=== PATIENT | male | born 1975 | race African-American/Black ===

== ENCOUNTER 2017-07-06 08:23 | Emergency (ER) | payer MEDICARE, MEDICAID | END 2017-07-06 09:00 | disposition home or self-care (01) | LOC: ERS 08:23 | DX: L03.115 Cellulitis of right lower limb (principal); E11.9 Type 2 diabetes mellitus without complications; I10 Essential (primary) hypertension | CPT/HCPCS: 99283 ==

== ENCOUNTER 2018-04-21 11:42 | Outpatient (CLI) | payer MEDICARE, MEDICAID | END 2018-04-21 11:43 | disposition home or self-care (01) | LOC: BICRAD 11:42 | PROVIDERS: ATTEND Family Medicine | DX: M25.562 Pain in left knee (principal); M54.5 Low back pain; R93.7 Abnormal findings on diagnostic imaging of other parts of musculoskeletal system; M46.96 Unspecified inflammatory spondylopathy, lumbar region; Z98.890 Other specified postprocedural states | CPT/HCPCS: 72100 ==

== ENCOUNTER 2019-09-18 11:59 | Inpatient (IN) | payer MEDICARE, MEDICAID ==
--- NOTE | 2019-09-18 12:53 | RAD ---
EXAM: Chest 2 views: HISTORY: Cough and congestion; shortness of breath COMPARISON: 10/19/2005 FINDINGS: There is a normal-sized cardiomediastinal silhouette. Scattered mixed perihilar opacities are seen. The bones are unremarkable. IMPRESSION: Mixed bilateral perihilar infiltrates.
[2019-09-18 13:48] LABS: #Eosinphils 0.2 thou/uL (0.0-0.7); #Monocytes 0.4 thou/uL (0.11-0.59); #Neutrophils 3.2 thou/uL (1.40-6.50); %Basophils 0.5 % (0.0-1.0); %Eosinophils 2.8 % (0.0-10.0); %Lymphocytes 34.7 % (21.0-51.0); %Monocytes 6.8 % (0.0-10.0); %Neutrophils 55.2 % (42.0-75.0); Hemoglobin 16.6 g/dL (14.0-18.0); Mean Corpuscular HGB CONC 32.5 g/dL (32.0-36.0); Mean Corpuscular Hemoglobin 31.2 pg (27.0-31.0); Mean Corpuscular Volume 95.8 fL (78.0-98.0); Mean Platelet Volume 8.6 fL (7.4-10.4); Platelet Count 178 thou/uL (130-400); RBC Distribution Width 15.1 % (11.5-14.5); Red Blood Cell (RBC) Count 5.31 mill/uL (4.70-6.10); White Blood Cell (WBC) Count 5.8 thou/uL (4.8-10.8)
[2019-09-18 14:14] LABS: ALT (SGPT) 52 U/L (8-55); AST (SGOT) 34 U/L (5-34); Albumin 4.1 g/dL (3.5-5.0); Alkaline Phosphatase 88 U/L (40-110); Anion Gap 14 mmol/L (10-20); BUN (Urea Nitrogen) 13 mg/dL (8.9-20.6); Bilirubin, Total 0.8 mg/dL (0.2-1.2); Calc. Creatinine Clearance 0 mL/min (70-130); Calcium 8.6 mg/dL (7.8-10.44); Carbon Dioxide 21 mmol/L (22-29); Chloride 110 mmol/L (98-107); Estimated GFR-MDRD 89; Globulin 3.1 g/dL (2.4-3.5); Glucose 77 mg/dL (70-105); Potassium 4.3 mmol/L (3.5-5.1); Protein, Total 7.2 g/dL (6.0-8.3); Sodium 141 mmol/L (136-145)
[2019-09-18] MEDS ORDERED: cefTRIAXone\\ROCEPHIN 2 GM VIAL ONE (14:25)
[2019-09-18] MEDS ORDERED: Sodium Chloride 0.9% 100 ML ONE (14:25)
[2019-09-18] MEDS ORDERED: Albuterol Sulfate 2.5 mg/3 ml Neb ONE (14:53)
[2019-09-18] MEDS ORDERED: Albuterol Sulfate 2.5 mg/0.5 ml Neb ONE (14:53)
[2019-09-18] MEDS ORDERED: Azithromycin 500 MG in Sodium Chloride 0.9% 250 ML 250 ML IVPB SCH (15:30)
[2019-09-18] MEDS ORDERED: Ondansetron PF 4 MG/2 ML Vial IVP PRN (17:39)
[2019-09-18] MEDS ORDERED: Senokot S 8.6-50 MG TAB PO PRN (17:39)
[2019-09-18] MEDS ORDERED: Dextrose 50% Abboject 50 ML SYRINGE SLOW IVP PRN (17:39)
[2019-09-18] MEDS ORDERED: HumaLOG 300 UNITS/3 ML VIAL SC PRN (17:39)
[2019-09-18] MEDS ORDERED: Acetaminophen 325 MG TAB PO PRN (17:39)
[2019-09-18] MEDS ORDERED: Dextrose 5% in Water 1,000 ML IV PRN (17:39)
--- NOTE | 2019-09-18 18:33 | CT ---
CT CHEST WITHOUT CONTRAST CLINICAL INDICATION: Shortness of breath for a couple of days. Cough. Chest congestion. Evaluate for infiltrate. COMPARISON: None FINDINGS: Aorta: Limited evaluation without IV contrast. However, the thoracic aorta is normal in caliber. Lungs: There are small to moderate-sized bilateral pleural effusions with associated parenchymal dens ities likely due to atelectasis; although, infiltrates cannot be excluded. There are patchy groundglass densities seen within the upper lobes bilaterally which is worrisome for infectious proce ss. Follow-up to resolution is recommended. Mediastinum: Limited evaluation without IV contrast, but no definite enlarged lymph nodes are appreci ated. Thyroid gland: Grossly normal in appearance where visualized for nonenhanced CT appearance. Osseous structures: Mild degenerative changes are seen in the spine. Chest wall: No abnormality visualized. Visualized upper abdomen: Grossly normal nonenhanced CT appearance. IMPRESSION: 1. Patchy groundglass opacities in the upper lobes bilaterally worrisome for infectious process. Foll ow-up to resolution is recommended. 2. Moderate-sized bilateral pleural effusions with associated consolidation which may be related to a telectasis. Areas of consolidation could potentially be related to pneumonia. 3. Follow-up to complete resolution is recommended.
[2019-09-18 18:40] LABS: HBCM Index 0.06 S/CO (0-0.79); HIV (1/2) Antibody/Antigen Non-Reactive (NonReactive); HIV 1/2 INDEX 0.15 S/CO (<1.00); Hep A IgM AB Non-Reactive (NonReactive); Hep A IgM S/CO 0.13 S/CO (0-0.79); Hep B Surf Ag Non-Reactive S/CO (NonReactive); Hep C IgG Ab Non-Reactive (NonReactive); Hep C Index 0.29 S/CO (0-0.79); Hepatitis B Core IgM Abs Non-Reactive (NonReactive)
--- NOTE | 2019-09-18 19:32 | HP ---
REASON FOR ADMISSION: Pneumonia, acute respiratory failure with hypoxia. HISTORY OF PRESENT ILLNESS: The patient gives history of cough with clear expectoration from last 3 to 4 days. He got severely short winded this afternoon and came to ER. No fever at home. No exposure to any recent contacts with flu- like illness. No complaints of muscular pain or weakness as such. He does not smoke. He has not had any recent pneumonia. PAST MEDICAL AND SURGICAL HISTORY: Diabetes mellitus type 2, hypertension. No prior surgical history. CURRENT MEDICATIONS: The patient notes he takes Levemir subcu twice daily. He also takes nine other pills, which he does not recall. He goes to [facility] pharmacy on [facility] [address] and will try to obtain the same. He normally ambulates by himself. ALLERGIES: NO KNOWN DRUG ALLERGIES. PERSONAL HISTORY: Drinks one beer daily per patient. Does not abuse drugs or smoke. He states he is disabled. He lives alone. FAMILY HISTORY: Mother is living and has diabetes. Father got killed when he was 3 years old. CODE STATUS: Full. Power of bankruptcy attorney is his mom, Ms. Bhupinder Triana, number to reach her is [phone]. REVIEW OF SYSTEMS: CONSTITUTIONAL: Negative for weight loss or gain, ability to conduct usual activities. SKIN: Negative for rash, itching. EYES: Negative for double vision, pain. ENT/MOUTH: Negative for nose bleeding, neck stiffness, pain, tenderness. CARDIOVASCULAR: Negative for palpitations, dyspnea on exertion, orthopnea. RESPIRATORY: Negative for shortness of breath, wheezing, cough, hemoptysis, fever or night sweats. GASTROINTESTINAL: Negative for poor appetite, abdominal pain, heartburn, nausea , vomiting, constipation, or diarrhea. GENITOURINARY: Negative for urgency, frequency, dysuria, nocturia. MUSCULOSKELETAL: Negative for pain, swelling. NEUROLOGIC/PSYCHIATRIC: Negative for anxiety, depression. ALLERGY/IMMUNOLOGIC: Negative for skin rash, bleeding tendency. Otherwise, negative except as stated per HPI. PHYSICAL EXAMINATION: GENERAL: The patient is a 43-year-old male, who is currently in mild respiratory distress. VITAL SIGNS: Blood pressure 210/108 on arrival, it has come down to 176/80, pulse 64 per minute, respiratory rate 22 per minute, temperature 97.9 degrees Fahrenheit, saturating 88% on room air and 95% on 4 L oxygen. NECK: Supple. No elevated JVD. HEENT: Eyes; extraocular muscles intact. Pupils reacting to light. Oral cavity, mucous membranes are dry. No exudates or congestion. CARDIOVASCULAR: S1 and S2 heard. Regular rhythm. RESPIRATORY: Air entry 1+ bilateral, coarse rales plus bilateral rhonchi plus bilateral. ABDOMEN: Soft. Bowel sounds heard. No tenderness, rigidity, or guarding. Abdomen is protuberant, which is chronic. EXTREMITIES: There is 2+ peripheral edema. No calf tenderness. VASCULAR: Peripheral pulses 1+ bilateral. No ischemic ulcerations or gangrene. CENTRAL NERVOUS SYSTEM: No gross focal deficits noted. The patient is alert, awake, and oriented well. PSYCHIATRIC: The patient's mood is euthymic. No hallucinations or delusions. LABORATORY DATA: Influenza A and B antigens are negative. CT chest without contrast done showed patchy ground-glass opacities in both upper lobes, worrisome for infectious process, moderate-sized bilateral pleural effusions. Serum bicarb 21, BUN 13, creatinine 1.0, serum glucose 77. Liver enzymes, AST 34, ALT 52, alkaline phosphatase 88, total bilirubin 0.8, BNP 244. Albumin 4.1, BUN 13, creatinine 1.0. White count of 5.8, H and H 16 and 50, platelet count 178 with 55% neutrophils, 34% lymphocytes. MCV is 95. CLINICAL IMPRESSION AND PLAN: The patient will be admitted to medical floor for pneumonia, acute respiratory failure with hypoxia. Clinically, the patient appears to have volume overload. He also has hypertensive urgency at present. In view of immunodeficiency with diabetes, we will place him on cefepime and Levaquin for now. We will obtain HIV test as well along with respiratory virus panel PCR. Urine for Legionella and strep pneumo antigens will be obtained as well. We will obtain consultation with Dr. Ernandez. We will try to keep him as lean as possible with some Lasix as well as patient has potential to go into acute respiratory distress syndrome if he truly has pneumonia. He will be on albuterol nebulizer q.6 hourly. We will obtain ABG stat, echo with 2D Doppler for LV function. The patient might have underlying sleep apnea with obesity as well. We will closely monitor him for worsening respiratory failure. We will place him on Procardia, clonidine, and hydralazine for now. Once his home medications are obtained from [facility] pharmacy on [facility], his medications will be updated based on clinical condition. We will also continue him on Humalog moderate scale. His serum sugar was 72. We will not give him a high dose of Levemir that he takes at home for now. We will continue to closely monitor him on medical floor. If the patient decompensates, he will be moved to ICU or IMCU. Job ID: [id number] MTDD
[2019-09-18] MEDS: Guaifenesin DM 100-10/5 ML UDCUP PO PRN (22:14)
[2019-09-18] MEDS: Famotidine 20 MG TAB PO SCH (22:14)
[2019-09-18] MEDS: cloNIDine 0.1 MG TAB PO SCH (22:15)
[2019-09-18] MEDS: hydrALAZINE 25 MG TAB PO SCH (22:15)
[2019-09-18] MEDS: Albuterol Sulfate 1.25 MG/3 ML NEB NEB SCH ×2 (22:45→23:28)
[2019-09-18 22:51] VITALS: BMI 37.9
[2019-09-18 23:38] LABS: Actual Bicarbonate (HCO3a) 22.3 mEq/L (22-28); Base Excess (BEa) -2.9 mEq/L (-2.0 to +3.0); CO2 Tension 40.5 mmHg (35.0-45.0); Calcium, Ionized 1.17 mmol/L (1.12-1.30); Carboxyhemoglobin (COHb) 1.5 gm% (0.0-3.0); Hemoglobin (Hb) 15.1 g/dL (14.0-18.0); O2 Tension (PaO2) 68.3 mmHg (80.0-100.0); Potassium - ABG Lab 4.02 mmol/L (3.70-5.30); pH, Arterial 7.36 (7.35-7.45)
[2019-09-18 23:39] LABS: ALV-art Gradient 80.715 (0-20); Puncture Site R RADIAL
[2019-09-19] MEDS: Cefepime 1 GM in Sodium Chloride 0.9% 100 ML IVPB SCH ×3 (00:17→20:51)
[2019-09-19] MEDS: Guaifenesin DM 100-10/5 ML UDCUP PO PRN ×2 (02:19→06:15)
[2019-09-19 05:15] LABS: #Eosinphils 0.2 thou/uL (0.0-0.7); #Lymphocytes 1.7 thou/uL (1.20-3.40); #Monocytes 0.6 thou/uL (0.11-0.59); #Neutrophils 3.2 thou/uL (1.40-6.50); %Basophils 0.7 % (0.0-1.0); %Eosinophils 3.6 % (0.0-10.0); %Lymphocytes 29.8 % (21.0-51.0); Hemoglobin 14.9 g/dL (14.0-18.0); Mean Corpuscular HGB CONC 32.4 g/dL (32.0-36.0); Mean Corpuscular Hemoglobin 30.5 pg (27.0-31.0); Mean Platelet Volume 8.8 fL (7.4-10.4); Platelet Count 169 thou/uL (130-400); RBC Distribution Width 15.3 % (11.5-14.5); Red Blood Cell (RBC) Count 4.88 mill/uL (4.70-6.10); White Blood Cell (WBC) Count 5.8 thou/uL (4.8-10.8)
[2019-09-19 05:35] LABS: Anion Gap 10 mmol/L (10-20); BUN (Urea Nitrogen) 13 mg/dL (8.9-20.6); Calc. Creatinine Clearance 123 mL/min (70-130); Calcium 8.3 mg/dL (7.8-10.44); Carbon Dioxide 26 mmol/L (22-29); Chloride 109 mmol/L (98-107); Estimated GFR-MDRD 81; Glucose 107 mg/dL (70-105); Potassium 4.3 mmol/L (3.5-5.1); Sodium 141 mmol/L (136-145)
[2019-09-19] MEDS: Furosemide 40 MG/4 ML VIAL SLOW IVP SCH ×2 (06:15→14:56)
[2019-09-19 07:27] LABS: Legionella Urinary Ag Negative (Negative); Strep pneumo Urine Ag NEGATIVE (NEGATIVE)
[2019-09-19] MEDS: Albuterol Sulfate 1.25 MG/3 ML NEB NEB SCH ×3 (07:36→18:45)
[2019-09-19] MEDS: cloNIDine 0.1 MG TAB PO SCH ×2 (09:08→20:52)
[2019-09-19] MEDS: hydrALAZINE 25 MG TAB PO SCH ×3 (09:08→20:52)
[2019-09-19] MEDS: Enoxaparin Sodium 40 MG/0.4 ML SYRINGE SC SCH (09:08)
[2019-09-19] MEDS: Famotidine 20 MG TAB PO SCH ×2 (09:08→20:52)
[2019-09-19] MEDS: NIFEdipine XL 60 MG TAB PO SCH (09:08)
--- NOTE | 2019-09-19 17:02 | CON ---
DATE OF CONSULTATION: 09/19/2019 CONSULTING PHYSICIAN: Herbie Love MD REASON FOR CONSULTATION: Pneumonia. HISTORY OF PRESENT ILLNESS: This is a 43-year-old who presented to the hospital with 2 days of increasing cough and congestion. He denied any fever. He was found to be hypoxic on presentation. He was admitted for treatment of bilateral pneumonia. PAST MEDICAL HISTORY: 1. Diabetes mellitus, type 2. 2. Hypertension. PAST SURGICAL HISTORY: None. MEDICATIONS: Prior to admission, Levemir insulin. ALLERGIES: NONE. SOCIAL HISTORY: Drinks 1 beer daily. Does not smoke. Does not use illicit drugs. Lives by himself, but has a girlfriend. Does not currently work. FAMILY MEDICAL HISTORY: Remarkable for diabetes. REVIEW OF SYSTEMS: Twelve-point review of systems is otherwise negative. PHYSICAL EXAMINATION: VITAL SIGNS: Temperature 98.4, pulse 59, respirations 16, O2 saturation 95% on 2 L, and blood pressure 166/99. HEENT: Unremarkable. NECK: No adenopathy or JVD. LUNGS: Inspiratory crackles best heard posteriorly and bilaterally. CARDIAC: S1 and S2. Regular. ABDOMEN: Soft and nontender. EXTREMITIES: No clubbing, cyanosis, or edema. NEUROLOGIC: Nonfocal. SKIN: Shows striae over his shoulders and his abdomen. LABORATORY DATA: White blood cell count 5.8, hematocrit 45.9, and platelet count 169. PH of 7.36, pCO2 of 40, and pO2 of 68. Sodium 141, potassium 4.3, chloride 109, CO2 of 26, BUN 13, creatinine 1.2, and glucose 107. HIV test was negative. IMAGING DATA: I reviewed his CT and chest x-ray, both show bilateral infiltrative changes. ASSESSMENT: Bilateral pneumonia, somewhat atypical in appearance. PLAN: Agree with the current medications including Levaquin and cefepime. Hopefully, he will improve in a couple of days and will get to go home. Job ID: [id number]
--- NOTE | 2019-09-19 20:47 | PDOC.HOSPP ---
- Subjective Subjective: No acute issues. Feeling better. - Objective Vital Signs & Weight: Vital Signs (12 hours) Temp Pulse Resp BP Pulse Ox 09/19/19 18:45 80 18 96 09/19/19 15:47 98.1 F 69 18 125/82 93 L 09/19/19 13:15 8 L 20 97 09/19/19 11:40 98.4 F 59 L 16 166/99 H 95 Weight Weight 242 lb I&O: 09/18/19 09/19/19 09/20/19 06:59 06:59 06:59 Intake Total 750 1800 Balance 750 1800 Result Diagrams: 09/19/19 04:57 09/19/19 04:57 Additional Labs: Accuchecks 09/19/19 09/19/19 09/19/19 20:15 16:26 10:44 POC Glucose 143 H 137 H 137 H 09/19/19 05:38 POC Glucose 86 Hospitalist ROS - Review of Systems Constitutional: denies: fever, chills, sweats, weakness, malaise, other Eyes: denies: pain, vision change, conjunctivae inflammation, eyelid inflammation, redness, other ENT: denies: ear pain, ear discharge, nose pain, nose discharge, nose congestion , mouth pain, mouth swelling, throat pain, throat swelling, other Respiratory: reports: cough. denies: dry, shortness of breath, hemoptysis, SOB with excertion, pleuritic pain, sputum, wheezing, other Cardiovascular: denies: chest pain, palpitations, orthopnea, paroxysmal noc. dyspnea, edema, light headedness, other Gastrointestinal: denies: nausea, vomiting, abdominal pain, diarrhea, constipation, melena, hematochezia, other Genitourinary: denies: dysuria, frequency, incontinence, hematuria, retention, other Musculoskeletal: denies: neck pain, shoulder pain, arm pain, back pain, hand pain, leg pain, foot pain, other Skin: denies: rash, lesions, flroencio, bruising, other Neurological: denies: weakness, numbness, incoordination, change in speech, confusion, seizures, other - Medication Medications: Active Medications Generic Name Dose Route Start Last Admin Trade Name Freq PRN Reason Stop Dose Admin Albuterol Sulfate 1.25 mg 09/18/19 19:00 09/19/19 18:45 Albuterol Sulfate NEB 1.25 mg [id number] RACHELLE Administration Clonidine 0.1 mg 09/18/19 21:00 09/19/19 09:08 Catapres PO 0.1 mg BID RACHELLE Administration Enoxaparin Sodium 40 mg 09/19/19 09:00 09/19/19 09:08 Lovenox SC 40 mg 0900 RACHELLE Administration Famotidine 20 mg 09/18/19 21:00 09/19/19 09:08 Pepcid PO 20 mg BID RACHELLE Administration Furosemide 40 mg 09/19/19 06:00 09/19/19 14:56 Lasix SLOW IVP 40 mg 0600,1400 RACHELLE Administration Guaifenesin/Dextromethorphan 15 ml 09/18/19 17:39 09/19/19 06:15 Robitussin Dm PO 15 ml Q4H PRN Administration Cough Hydralazine HCl 25 mg 09/18/19 21:00 09/19/19 14:56 Apresoline PO 25 mg TID RACHELLE Administration Cefepime HCl 1 gm/ Sodium 100 mls @ 200 mls/hr 09/18/19 21:00 09/19/19 09:08 Chloride IVPB 100 mls Q12HR RACHELLE Administration Levofloxacin 500 mg/ Device 100 mls @ 100 mls/hr 09/18/19 20:00 09/18/19 22: 14 IVPB 100 mls Q24HR RACHELLE Administration Nifedipine 60 mg 09/19/19 09:00 09/19/19 09:08 Procardia Xl PO 60 mg DAILY RACHELLE Administration Sodium Chloride 10 ml 09/18/19 21:00 09/19/19 09:11 Flush - Normal Saline IVF 10 ml Q12HR RACHELLE Administration - Exam General Appearance: NAD, awake alert Eye: PERRL, anicteric sclera ENT: normocephalic atraumatic, no oropharyngeal lesions Neck: supple, symmetric, no JVD, no thyromegaly Heart: RRR, no murmur, no gallops, no rubs Respiratory: CTAB, no wheezes, no rales, no ronchi Gastrointestinal: soft, non-tender, non-distended, normal bowel sounds Extremities: no cyanosis, no clubbing, no edema Skin: no lesions, no rashes Neurological: cranial nerve grossly intact, no focal deficits Musculoskeletal: normal strength, no muscle wasting Psychiatric: normal affect, A&O x 3 Hosp A/P (1) PNA (pneumonia) Code(s): J18.9 - PNEUMONIA, UNSPECIFIED ORGANISM Status: Acute (2) HTN (hypertension) Code(s): I10 - ESSENTIAL (PRIMARY) HYPERTENSION Status: Acute Qualifiers: Hypertension type: essential hypertension Qualified Code(s): I10 - Essential (primary) hypertension Plan: Controlled. Cont med mgt. Monitor BP. (3) Diabetes Code(s): E11.9 - TYPE 2 DIABETES MELLITUS WITHOUT COMPLICATIONS Status: Acute Qualifiers: Diabetes mellitus type: type 2 Diabetes mellitus half-way insulin use: unspecified half-way insulin use status Diabetes mellitus complication status : without complication Qualified Code(s): E11.9 - Type 2 diabetes mellitus without complications Plan: Controlled. Cont current BP meds. Cover with SSI. - Plan PPx: SCDs. CODE: FULL. Dispo: Cont current mgt. D/c in 1-2 days.
[2019-09-20] MEDS: Albuterol Sulfate 1.25 MG/3 ML NEB NEB SCH ×4 (01:15→18:37)
[2019-09-20] MEDS: Furosemide 40 MG/4 ML VIAL SLOW IVP SCH ×2 (05:47→14:21)
[2019-09-20] MEDS: Famotidine 20 MG TAB PO SCH ×2 (08:54→20:24)
[2019-09-20] MEDS: cloNIDine 0.1 MG TAB PO SCH ×2 (08:55→20:23)
[2019-09-20] MEDS: NIFEdipine XL 60 MG TAB PO SCH (08:55)
[2019-09-20] MEDS: hydrALAZINE 25 MG TAB PO SCH ×3 (08:55→20:24)
[2019-09-20] MEDS: Enoxaparin Sodium 40 MG/0.4 ML SYRINGE SC SCH (08:59)
[2019-09-20] MEDS: Cefepime 1 GM in Sodium Chloride 0.9% 100 ML IVPB SCH ×2 (08:59→20:23)
--- NOTE | 2019-09-20 13:38 | PDOC.HOSPP ---
- Subjective Subjective: No new issues. Pt feels better. Still on 2L of O2 though. - Objective Vital Signs & Weight: Vital Signs (12 hours) Temp Pulse Resp BP BP Pulse Ox 09/20/19 12:08 70 16 09/20/19 11:44 97.9 F 69 16 146/85 H 95 09/20/19 08:55 67 151/92 H 09/20/19 08:14 97 09/20/19 08:05 97.9 F 67 18 151/92 H 95 09/20/19 08:00 97 09/20/19 07:10 75 16 97 09/20/19 05:50 166/111 H 09/20/19 03:28 98.2 F 76 16 138/68 92 L 09/20/19 02:38 96 Weight Weight 242 lb I&O: 09/19/19 09/20/19 09/21/19 06:59 06:59 06:59 Intake Total 750 2450 Balance 750 2450 Result Diagrams: 09/19/19 04:57 09/19/19 04:57 Additional Labs: Accuchecks 09/20/19 09/20/19 09/19/19 10:41 05:37 20:15 POC Glucose 144 H 114 H 143 H 09/19/19 16:26 POC Glucose 137 H Hospitalist ROS - Review of Systems Constitutional: denies: fever, chills, sweats, weakness, malaise, other Eyes: denies: pain, vision change, conjunctivae inflammation, eyelid inflammation, redness, other ENT: denies: ear pain, ear discharge, nose pain, nose discharge, nose congestion , mouth pain, mouth swelling, throat pain, throat swelling, other Respiratory: denies: cough, dry, shortness of breath, hemoptysis, SOB with excertion, pleuritic pain, sputum, wheezing, other Cardiovascular: denies: chest pain, palpitations, orthopnea, paroxysmal noc. dyspnea, edema, light headedness, other Gastrointestinal: denies: nausea, vomiting, abdominal pain, diarrhea, constipation, melena, hematochezia, other Genitourinary: denies: dysuria, frequency, incontinence, hematuria, retention, other Musculoskeletal: denies: neck pain, shoulder pain, arm pain, back pain, hand pain, leg pain, foot pain, other Skin: denies: rash, lesions, florencio, bruising, other Neurological: denies: weakness, numbness, incoordination, change in speech, confusion, seizures, other - Medication Medications: Active Medications Generic Name Dose Route Start Last Admin Trade Name Freq PRN Reason Stop Dose Admin Albuterol Sulfate 1.25 mg 09/18/19 19:00 09/20/19 12:08 Albuterol Sulfate NEB 1.25 mg [id number] RACHELLE Administration Clonidine 0.1 mg 09/18/19 21:00 09/20/19 08:55 Catapres PO 0.1 mg BID RACHELLE Administration Enoxaparin Sodium 40 mg 09/19/19 09:00 09/20/19 08:59 Lovenox SC 40 mg 0900 RACHELLE Administration Famotidine 20 mg 09/18/19 21:00 09/20/19 08:54 Pepcid PO 20 mg BID RACHELLE Administration Furosemide 40 mg 09/19/19 06:00 09/20/19 05:47 Lasix SLOW IVP 40 mg 0600,1400 RACHELLE Administration Guaifenesin/Dextromethorphan 15 ml 09/18/19 17:39 09/19/19 06:15 Robitussin Dm PO 15 ml Q4H PRN Administration Cough Hydralazine HCl 25 mg 09/18/19 21:00 09/20/19 08:55 Apresoline PO 25 mg TID RACHELLE Administration Cefepime HCl 1 gm/ Sodium 100 mls @ 200 mls/hr 09/18/19 21:00 09/20/19 08:59 Chloride IVPB 100 mls Q12HR RACHELLE Administration Levofloxacin 500 mg/ Device 100 mls @ 100 mls/hr 09/18/19 20:00 09/19/19 20: 50 IVPB 100 mls Q24HR RACHELLE Administration Nifedipine 60 mg 09/19/19 09:00 09/20/19 08:55 Procardia Xl PO 60 mg DAILY RACHELLE Administration Sodium Chloride 10 ml 09/18/19 21:00 09/20/19 08:59 Flush - Normal Saline IVF 10 ml Q12HR RACHELLE Administration - Exam General Appearance: NAD, awake alert Eye: PERRL, anicteric sclera ENT: normocephalic atraumatic, no oropharyngeal lesions, moist mucosa Neck: supple, symmetric, no JVD, no thyromegaly, no lymphadenopathy Heart: RRR, no murmur, no gallops, no rubs, normal peripheral pulses Respiratory: CTAB, no wheezes, no rales, no ronchi Gastrointestinal: soft, non-tender, non-distended, normal bowel sounds Extremities: no cyanosis, no clubbing, no edema Skin: no lesions, no rashes Neurological: cranial nerve grossly intact, no focal deficits Musculoskeletal: normal tone, normal strength, no muscle wasting Psychiatric: normal affect, normal behavior, A&O x 3 Hosp A/P (1) Respiratory failure with hypoxia Code(s): J96.91 - RESPIRATORY FAILURE, UNSPECIFIED WITH HYPOXIA Status: Acute Plan: Likely due to PNA. Wean treat PNA. Wean off O2 as tolerated. - Plan Hosp A/P (1) PNA (pneumonia) Code(s): J18.9 - PNEUMONIA, UNSPECIFIED ORGANISM Status: Acute Will get repeat CT chest tmr for further evaluation. Cont current abx. Wean off oxygen. (2) HTN (hypertension) Code(s): I10 - ESSENTIAL (PRIMARY) HYPERTENSION Status: Acute Qualifiers: Hypertension type: essential hypertension Qualified Code(s): I10 - Essential (primary) hypertension Plan: Controlled. Cont med mgt. Monitor BP. (3) Diabetes Code(s): E11.9 - TYPE 2 DIABETES MELLITUS WITHOUT COMPLICATIONS Status: Acute Qualifiers: Diabetes mellitus type: type 2 Diabetes mellitus mcfp insulin use: unspecified mcfp insulin use status Diabetes mellitus complication status : without complication Qualified Code(s): E11.9 - Type 2 diabetes mellitus without complications Plan: Controlled. Cont current BP meds. Cover with SSI. PPx: SCDs. CODE: FULL. Dispo: Cont current mgt. Repeat CT chest tmr. D/c in 1-2 days.
--- NOTE | 2019-09-20 15:33 | PRG ---
DATE OF SERVICE: 09/20/2019 SUBJECTIVE: The patient feels much better. He wants to go home. OBJECTIVE: VITAL SIGNS: Temperature 97.9, pulse 60, blood pressure 160/103, O2 saturation 95% on 2 L. HEENT: Unremarkable. NECK: No JVD. LUNGS: Few crackles in the bases. CARDIAC: S1 and S2, regular. ABDOMEN: Soft. EXTREMITIES: No edema. LABORATORY DATA: No labs were done today. ASSESSMENT: Community-acquired pneumonia, somewhat atypical in appearance. RECOMMENDATIONS: I would switch the patient over to Omnicef and Levaquin orally at the time of discharge and treat him for a total of 7 to 10 days. There is no indication for a repeat CT scan in this patient. At the current time, I do not suspect anything in the way of effusion. If that were to be suspected, then a routine chest x-ray would be good enough. Job ID: [id number]
[2019-09-20] MEDS: HumaLOG 300 UNITS/3 ML VIAL SC PRN (17:52)
[2019-09-21] MEDS: Albuterol Sulfate 1.25 MG/3 ML NEB NEB SCH ×3 (00:06→13:44)
[2019-09-21 05:31] LABS: #Basophils 0.1 thou/uL (0.0-0.2); #Eosinphils 0.3 thou/uL (0.0-0.7); #Lymphocytes 2.1 thou/uL (1.20-3.40); #Monocytes 0.7 thou/uL (0.11-0.59); #Neutrophils 2.3 thou/uL (1.40-6.50); %Basophils 1.6 % (0.0-1.0); %Eosinophils 5.1 % (0.0-10.0); %Lymphocytes 38.3 % (21.0-51.0); %Monocytes 13.1 % (0.0-10.0); %Neutrophils 41.9 % (42.0-75.0); Mean Corpuscular HGB CONC 31.1 g/dL (32.0-36.0); Mean Corpuscular Hemoglobin 29.3 pg (27.0-31.0); Mean Corpuscular Volume 94.2 fL (78.0-98.0); Mean Platelet Volume 8.4 fL (7.4-10.4); Platelet Count 178 thou/uL (130-400); RBC Distribution Width 14.9 % (11.5-14.5); Red Blood Cell (RBC) Count 5.46 mill/uL (4.70-6.10); White Blood Cell (WBC) Count 5.4 thou/uL (4.8-10.8)
[2019-09-21 05:49] LABS: Anion Gap 13 mmol/L (10-20); BUN (Urea Nitrogen) 14 mg/dL (8.9-20.6); Calc. Creatinine Clearance 116 mL/min (70-130); Calcium 9.4 mg/dL (7.8-10.44); Carbon Dioxide 28 mmol/L (22-29); Chloride 101 mmol/L (98-107); Estimated GFR-MDRD 76; Glucose 140 mg/dL (70-105); Potassium 3.7 mmol/L (3.5-5.1); Sodium 138 mmol/L (136-145)
[2019-09-21] MEDS: Furosemide 40 MG/4 ML VIAL SLOW IVP SCH ×2 (06:38→14:06)
[2019-09-21] MEDS: hydrALAZINE 25 MG TAB PO SCH ×2 (08:45→14:06)
[2019-09-21] MEDS: NIFEdipine XL 60 MG TAB PO SCH (08:45)
[2019-09-21] MEDS: Famotidine 20 MG TAB PO SCH (08:45)
[2019-09-21] MEDS: Cefepime 1 GM in Sodium Chloride 0.9% 100 ML IVPB SCH (08:45)
[2019-09-21] MEDS: cloNIDine 0.1 MG TAB PO SCH (08:45)
[2019-09-21] MEDS: Enoxaparin Sodium 40 MG/0.4 ML SYRINGE SC SCH (08:46)
--- NOTE | 2019-09-21 09:22 | PRG ---
DATE OF SERVICE: 09/21/2019 SUBJECTIVE: The patient is doing well. No complaints. Wants to go home. OBJECTIVE: VITAL SIGNS: Temperature 98.3, pulse 81, respirations 18, O2 saturation 93% on room air. HEENT: Unremarkable. NECK: No adenopathy or JVD. LUNGS: Clear. CARDIAC: S1, S2 regular. ABDOMEN: Soft. EXTREMITIES: No edema. LABORATORY DATA: White blood cell count 5.4, hematocrit 51.4, and platelet count 178. Sodium 138, potassium 3.7, chloride 101, CO2 of 28, BUN 14, creatinine 1.2, glucose 114. ASSESSMENT: Bilateral pneumonia, somewhat atypical in appearance. PLAN: I would go ahead and discharge on Levaquin, Omnicef with followup x-ray in about 3 weeks. Job ID: [id number]
[2019-09-21] MEDS: HumaLOG 300 UNITS/3 ML VIAL SC PRN (12:50)
[2019-09-21] MEDS ORDERED: Iopamidol-370 76% 500 ML 1 ML ONE (14:29)
[2019-09-21 16:24] VITALS: BP 122/85; TEMP 97.9
--- NOTE | 2019-09-22 02:56 | PQF ---
Constantine Cerda Olejeme MD [id number] CLINICAL DOCUMENTATION CLARIFICATION FORM: POST DISCHARGE Addendum to original discharge summary date: ____ Late entry note date: __ DATE: 09/22/2019 ATTN: Diego Lynn Please exercise your independent, professional judgment in responding to the clarification form. Clinical indicators are provided on the bottom of this form for your review Please check appropriate box(es): [ ] Sepsis due to Pneumonia [ ] Severe sepsis with acute organ dysfunction of: (Examples: respiratory failure, encephalopathy, acute kidney failure, other) [ ] Septic Shock [ ] Localized infection without sepsis [ ] Other diagnosis [ ] Unable to determine In addition, please specify: Present on Admission (POA): [ ] Yes [ ] No [ ] Unable to determine For continuity of documentation, please document condition throughout progress notes and discharge summary. Thank You. CLINICAL INDICATORS - SIGNS / SYMPTOMS / LABS H&P p1 09/18 Dr Love Pt gives history of cough with clear expectoration from last 3-4 days H&P p2 09/18 Dr Love Vital signs: Respiratpry 22 per minute, saturing 88 % on room air H&P p2 09/18 Dr Love Pt admitted to medical floor to pneumonia, Acute Respiratory failure with hypoxia RISK FACTORS H&P p2 09/18 - Pneumonia H&P p2 09/18 - Acute Respiratory failure with Hypoxia TREATMENTS: Respiratory panel 09/18 - O2 at 4L H&P p3 09/18 - HIV test obtain OCT 24 Albuterol OCT 24 IV Cefepime OCT 24 IV Rocephin OCT 24 IV Levofloxacin Pulmonology consult 09/19 Dr Awais Calvin (This form is maintained as a part of the permanent medical record) 2014 [employer], 24h00. All Rights Reserved [email or web address] [not provided] MTDD
--- NOTE | 2019-09-22 10:03 | DIS ---
DATE OF ADMISSION: 09/18/2019 DATE OF DISCHARGE: 09/21/2019 DISCHARGE DIAGNOSES: 1. Respiratory failure with hypoxia. 2. Pneumonia. 3. Hypertension. 4. Diabetes. HOSPITAL COURSE: Mr. Cerda is a 43-year-old gentleman with a past medical history of hypertension and diabetes, who was admitted on 09/18/2019, on account of cough and shortness of breath. The patient presented to emergency room, where imaging noted that he had patchy ground glass opacities in both upper lobes, worrisome for diabetes. The patient was admitted and started on antibiotics, nebulizations, and steroids. Over the course of the next few days, the patient improved. He was also seen by Pulmonary, who cleared him for discharge. The patient is stable on discharge and will be discharged to home. PHYSICAL EXAMINATION: VITAL SIGNS: Temperature is 97.7, blood pressure is , pulse is 90, respirations 18, and oxygen saturation 95% on room air. GENERAL: Middle-aged gentleman, in no acute distress. HEENT: Not pale. No jaundice. Pupils are equal and reactive to light and accommodation. Extraocular movements are intact. NECK: Supple. No JVD. No thyromegaly. No bruits. CARDIOVASCULAR: First and second heart sounds are heard. No murmurs, rubs, or gallops. RESPIRATORY: Good air entry bilaterally. No crackles. No rales. No wheezes. ABDOMEN: Bowel sounds are present. Nondistended. Nontender. EXTREMITIES: No cyanosis. No clubbing. No edema. SKIN: Has no rashes or lesions noted. NEUROLOGIC: Intact. DISCHARGE DESTINATION: Home. ACTIVITIES: As tolerated. DIET: Cardiac diabetic diet. FOLLOWUP: The patient needs to follow up with his primary care physician in the next 1 to 2 weeks. Discharge planning was discussed with patient, who accepted recommendations. TIME SPENT: On discharge, 30 minutes. Job ID: [id number]
== END 2019-09-21 17:50 | disposition home or self-care (01) | DRG 193 ==
LOC: ERS 11:59 → OBSVTOIN 21:48 → SURG A 21:48
PROVIDERS: ADMIT Emergency Medicine; ATTEND Emergency Medicine
DX: J18.9 Pneumonia, unspecified organism (principal); J96.01 Acute respiratory failure with hypoxia; E11.9 Type 2 diabetes mellitus without complications; I10 Essential (primary) hypertension; I16.0 Hypertensive urgency; E87.70 Fluid overload, unspecified; Z79.4 Long term (current) use of insulin; Z28.21 Immunization not carried out because of patient refusal
CPT/HCPCS: 36415; 36416; 71046; 71250; 80048; 80053; 80074; 82805; 83605; 83880; 85025; 87040; 87070; 87205; 87389; 87449; 87633; 87804; 87899; 93306; 94640; 94644; 94760; 96365; 96367; J0456; J0692; J0696; J1650; J1940; J1956; J3490; J7050; J7611; J7620; Q9967

== ENCOUNTER 2020-03-11 10:45 | Observation (INO) | payer MEDICARE, MEDICAID ==
--- NOTE | 2020-03-11 11:34 | CT ---
CT BRAIN WITHOUT CONTRAST: HISTORY: Level 2 stroke. Slurred speech and right tongue deviation FINDINGS: No evidence of acute infarct, hemorrhage, midline shift or abnormal extra-axial fluid collections is seen. The ventricular size is appropriate and the basilar cisterns are patent. The bony calvarium is intact. There is mild mucosal disease in the paranasal sinuses. IMPRESSION: No CT evidence of acute intracranial process. Discussed over the telephone with ER physician Dr. Adolfo Cai at 11:30 AM.
[2020-03-11 11:39] LABS: #Basophils 0.1 thou/uL (0.0-0.2); #Eosinphils 0.2 thou/uL (0.0-0.7); #Monocytes 0.4 thou/uL (0.11-0.59); #Neutrophils 2.4 thou/uL (1.40-6.50); %Basophils 1.5 % (0.0-1.0); %Lymphocytes 39.4 % (21.0-51.0); %Monocytes 7.9 % (0.0-10.0); %Neutrophils 47.2 % (42.0-75.0); Hemoglobin 16.2 g/dL (14.0-18.0); Mean Corpuscular Hemoglobin 31.8 pg (27.0-31.0); Mean Corpuscular Volume 96.5 fL (78.0-98.0); Mean Platelet Volume 10.1 fL (7.4-10.4); Platelet Count 159 thou/uL (130-400); RBC Distribution Width 13.4 % (11.5-14.5); Red Blood Cell (RBC) Count 5.08 mill/uL (4.70-6.10); White Blood Cell (WBC) Count 5.2 thou/uL (4.8-10.8)
--- NOTE | 2020-03-11 11:45 | RAD ---
EXAM: Single view of the chest HISTORY: Altered mental status and slurred speech for 3 days COMPARISON: None FINDINGS: Single view of the chest shows a normal sized cardiomediastinal silhouette. There is no marcella dence of consolidation, mass, or pleural effusion. The bones are unremarkable IMPRESSION: No evidence of acute cardiopulmonary disease
[2020-03-11 12:10] LABS: Acetaminophen Less than 6.0 mcg/mL (10.0-30.0); Alcohol Less than 10 mg/dL (Less than 10); Salicylate Less than 8.0 mg/dL (15.0-30.0)
[2020-03-11 12:11] LABS: ALT (SGPT) 24 U/L (8-55); AST (SGOT) 25 U/L (5-34); Albumin 4.2 g/dL (3.5-5.0); Alkaline Phosphatase 113 U/L (40-110); Anion Gap 11 mmol/L (10-20); BUN (Urea Nitrogen) 16 mg/dL (8.9-20.6); Bilirubin, Total 0.9 mg/dL (0.2-1.2); CK (CPK) 481 U/L (30-200); Calc. Creatinine Clearance 0 mL/min (70-130); Calcium 9.2 mg/dL (7.8-10.44); Carbon Dioxide 30 mmol/L (22-29); Chloride 101 mmol/L (98-107); Estimated GFR-MDRD 67; Globulin 2.8 g/dL (2.4-3.5); Glucose 315 mg/dL (70-105); Lipase 58 U/L (8-78); Potassium 4.2 mmol/L (3.5-5.1); Sodium 138 mmol/L (136-145)
[2020-03-11] MEDS ORDERED: Iopamidol-370 76% 500 ML 1 ML ONE (12:32)
[2020-03-11] MEDS ORDERED: Aspirin Chewable 81 MG TAB ONE (12:34)
[2020-03-11] MEDS ORDERED: Magnevist 469MG/ML 20 ML VIAL ONE (12:42)
[2020-03-11] MEDS ORDERED: Dextrose 5% in Water 1,000 ML IV PRN (12:57)
[2020-03-11] MEDS ORDERED: Dextrose 50% Abboject 50 ML SYRINGE SLOW IVP PRN (12:57)
--- NOTE | 2020-03-11 13:48 | PDOC.FPRHP ---
- History of Present Illness Chief Complaint: difficulty talking History of Present Illness: 44 y/o M with PMHx of HTN, DM presents to the ED from his PCP office for c/o difficulty speaking and tongue "feeling twisted", onset 2 days ago. Reports he was at home talking to his mother in the morning 2 days ago, and realized he was having difficulty talking. Symptoms have been present since then without relief. He presented to his PCP office today for hospital follow up from a recent pneumonia, and was immediately sent to the ED for evaluation. Patient denies any other stroke-related symptoms, including headache, difficulty walking , difficulty with limb control, facial drooping. He has never had stroke-like symptoms in the past. He has not taken anything for his symptoms. Feels "tongue twisting" is worsened by talking, no alleviating factors. States he is compliant with home medications, has brought them with him in a bag. He also c/ o edema in his bilateral extremities, reports it has been present for about 1 week. He is able to walk about one block before he becomes SOB. Denies SOB at rest. Denies any chest pain. He is a never smoker. He denies having echo in the past. ED Course: CT brain: no acute hemorrhage s/p 324mg ASA, 500mL NS bolus - Allergies/Adverse Reactions Allergies Allergy/AdvReac Type Severity Reaction Status Date / Time No Known Allergies Allergy Verified 11/12/19 14:27 - Home Medications Medication Instructions Recorded Confirmed Type Atorvastatin Calcium [Lipitor] 40 mg PO DAILY 09/18/19 09/18/19 History Azelastine HCl [Azelastine HCl 1 drop EA EYE BID 09/18/19 09/18/19 History 0.05% Ophth Soln] Dapagliflozin Propanediol [Farxiga] 10 mg PO DAILY 09/18/19 09/18/19 History Glimepiride [Amaryl] 2 mg PO DAILY 09/18/19 09/18/19 History HYDROcodone/Acetaminophen [[place] 1 - 2 tab PO Q6HR PRN 09/18/19 09/18/19 History 10-325 Tablet] Insulin Detemir [Levemir] 50 unit SC BID 09/18/19 09/18/19 History Losartan/Hydrochlorothiazide 1 tab PO DAILY 09/18/19 09/18/19 History [Losartan-Hctz 100-25 mg Tab] Metoprolol Succinate [Toprol XL] 100 mg PO DAILY 09/18/19 09/18/19 History Pregabalin [Lyrica] 75 mg PO BID 09/18/19 09/18/19 History Terbinafine [LamISIL] 250 mg PO DAILY 09/18/19 09/18/19 History Zolpidem Tartrate [Ambien] 10 mg PO HS 09/18/19 09/18/19 History Cefdinir [Omnicef] 300 mg PO BID 5 Days #10 cap 09/21/19 Rx Levofloxacin [Levaquin] 750 mg PO DAILY 5 Days #5 tab 09/21/19 Rx NIFEdipine [Nifedipine ER] 60 mg PO DAILY 30 Days #30 09/21/19 Rx tablet.er NIFEdipine [Procardia XL] 60 mg PO DAILY 30 Days #30 tab 09/21/19 Rx - History PMHx: HTN, T2DM PSHx: none FHx: mother - DM HTN, sister - DM, HTN Social: Never smoker. Reports occasional ETOH use. Denies drug use. - Review of Systems General: denies: fever/chills ENT: denies: nasal congestion, rhinorrhea Respiratory: denies: cough, congestion, shortness of breath Cardiovascular: reports: edema. denies: chest pain Gastrointestinal: denies: nausea, vomiting, diarrhea, constipation, abdominal pain Genitourinary: denies: dysuria, polyuria Skin: denies: rashes Neurological: reports: other (+tongue deviation, difficulty talking). denies: numbness, weakness - Vital signs BP: 158/130 HR: 84 RR: 18 Tmax: 98.7 Pox: 98% on RA Wt: 113kg - Physical Exam Constitutional: NAD, awake, alert and oriented, other -Constitutional: obese HEENT: normocephalic and atraumatic, PERRLA, EOMI, grossly normal vision, grossly normal hearing, MMM Neck: supple, FROM, no LAD Heart: RRR, normal S1/S2, pulses present -Heart: 1-2+ pitting edema, bilateral LE to knees Lungs: no respiratory distress -Lungs: +rales bilateral lungs Abdomen: non-tender, bowel sounds present -Abdomen: full, rounded, obese Musculoskeletal: normal structure, ROM grossly normal Neurological: other (R tongue deviation, slurred speech. Midline uvula. CN II- XII otherwise intact. Strength 5/5 in all extremities.) Skin: no rash/lesions Heme/Lymphatic: no unusual bruising or bleeding, no purpura, no petechia, no LAD Psychiatric: normal mood and affect, intact recent and remote memory FMR H&P: Results - Labs Result Diagrams: 03/11/20 11:15 03/11/20 11:15 Lab results: WBC 5.2 thou/uL (4.8-10.8) 03/11/20 11:15 Hgb 16.2 g/dL (14.0-18.0) 03/11/20 11:15 Hct 49.0 % (42.0-52.0) 03/11/20 11:15 MCV 96.5 fL (78.0-98.0) 03/11/20 11:15 Plt Count 159 thou/uL (130-400) 03/11/20 11:15 Neutrophils % 47.2 % (42.0-75.0) 03/11/20 11:15 Sodium 138 mmol/L (136-145) 03/11/20 11:15 Potassium 4.2 mmol/L (3.5-5.1) 03/11/20 11:15 Chloride 101 mmol/L (98-107) 03/11/20 11:15 Carbon Dioxide 30 mmol/L (22-29) H 03/11/20 11:15 BUN 16 mg/dL (8.9-20.6) 03/11/20 11:15 Creatinine 1.39 mg/dL (0.7-1.3) H 03/11/20 11:15 Glucose 315 mg/dL (70-105) H 03/11/20 11:15 Calcium 9.2 mg/dL (7.8-10.44) 03/11/20 11:15 Total Bilirubin 0.9 mg/dL (0.2-1.2) 03/11/20 11:15 AST 25 U/L (5-34) 03/11/20 11:15 ALT 24 U/L (8-55) 03/11/20 11:15 Alkaline Phosphatase 113 U/L (40-110) H 03/11/20 11:15 Creatine Kinase 481 U/L (30-200) H 07/17/20 11:15 Serum Total Protein 7.0 g/dL (6.0-8.3) 03/11/20 11:15 Albumin 4.2 g/dL (3.5-5.0) 03/11/20 11:15 Lipase 58 U/L (8-78) 03/11/20 11:15 - EKG Interpretation EKG: EKG reviewed by me: NSR, no ST changes FMR H&P: A/P - Plan TIA vs ischemic CVA, likely New onset tongue deviation, slurred speech. No other deficits at this time. CT head negative in ED. ASA 324mg given in ED. -CTA head and neck to assess vasculature -MRI brain to assess evidence of ischemic stroke -ASA 81mg daily -will check lipid panel -started atorvastatin 40mg; not taking statin in outpatient setting CHF, possible Edema, rales on exam today and reported SOB with exertion. -BNP wnl at 86 today -Echo 08/2019 with EF 55-60% -will continue to monitor -recommend f/u in outpatient setting T2DM Likely poorly controlled, glucose 315 today. -No Hga1c on record in past 3 months, will check -Will hold home farxiga and glimeperide -Start lantus 10u + mild SSI HTN Hypertensive today. Will allow permissive HTN in setting of possible stroke. -will hold home meds for now, resume as tolerated -hydralazine, labetalol PRN for BP >220 PPx: lovenox Diet: heart healthy Dispo: Admit to stroke for observation. FMR H&P: Upper Level - Plan Date/Time: 03/11/20 1348 IJason DO , have evaluated this patient and agree with findings/plan as outlined by project internship resident. Pertinent changes/additions are listed here. This is a 44 yo male with a pmh of HTN and DM2 who presents to the ER with a ccc of slurred speech. He was sent from the clinic with a three day history of slurred speech. He states his primary complaint has been due to his tongue and he reports it feels twisted. He denies nausea, vomiting, fever, chills, weakness , dizziness, syncope, previous strokes, or heart conditions. Denies any sick contacts or COVID exposure. No urinary symptoms, last BM was yesterday. Pt states he could walk about a block before getting short of breath. Objective: Vitals: BP 158/130, HR 85, RR 18, Temp 98.7, SpO2 98% RA, Wt 113 kg General: NAD HEENT: MMM, AT/NC Cardio: RRR, no murmurs Respiratory: Good air movement, crackles at lung bases Abdomen: Soft, nontender, BS+ Extremities:1+ pitting edema, thickened toenails Neuro: CN II-XII grossly intact with the exception of right sided tongue deviation, HINTs exam normal, cerebellar testing normal, Strength 5/5 globally, decreased sensation in BLE, worse in the left plantar surface A/P CVA r/o -Admit to stroke -CT brain negative -FLP -ASA, statin therapy -Pending CTA head and neck and MRI brain -TTE -Risk stratification labs HOWARD -Baseline Cr 1 -Likely related to diabetes HTN -Permissive HTN 220/120 -PRNs available DM2, poorly controlled -Long acting insulin and SSI while in the hospital -Diabetic protocol per orders -Pt will need podiatry when he leaves for diabetic foot management Code: Full Prophylaxis: SCDs Family: None at bedside Diet: HH, CC, Fluid restriction Fluids: SL Disposition: DC in 1-2 days PCP: BELEN Addendum - Attending - Attending Attestation Date/Time: 03/11/20 2088 I personally evaluated the patient and discussed the management with Dr. Escobedo/ Johnny. I agree with the History, Examination, Assessment and Plan documented above with any addition or exceptions noted below. Tongue numbness/tingling/drift for 2-[address] days[address] Unremarkable neuro exam. CT unremarkable. Risk stratify, MRI, Likely d/c after. Start ASA, High intensity statin, further management once imaging returns. Normal TTE August 2019.
[2020-03-11 13:57] LABS: Hemoglobin A1c 9.8 % (4.0-6.0)
--- NOTE | 2020-03-11 14:54 | MRI ---
MRI BRAIN WITH AND WITHOUT IV CONTRAST: HISTORY: Slurred speech and right tongue deviation FINDINGS: No restricted diffusion is seen. No evidence of infarct, hemorrhage, mass, midline shift or abnormal extra-axial fluid collections is noted. No abnormal postcontrast enhancement is seen. The ventricular size is appropriate and the basilar cisterns are patent.There is mucosal disease in the p aranasal sinuses. IMPRESSION: No evidence of acute intracranial process or mass.
--- NOTE | 2020-03-11 15:24 | CT ---
CTA Angio Head W WO Con CT angiogram neck with contrast History: Slurred speech Comparison: CT brain same day. MRI brain same day. Findings: CT angiogram of the head and neck was performed after the intravenous administration of con trast. 3-D rendering provided. Lung apices are clear. Normal cervical spine alignment. The right vertebral artery is patent and dominant. The left vertebral artery is patent. The right common carotid artery is patent. The right internal carotid artery is patent. The left common carotid artery is patent. The left internal carotid artery is patent. No hemodynamically significant stenosis of the internal carotid arteries per NASCET criteria. The [place] is patent without stenosis, thrombosis nor aneurysm formation. Dural venous sinuses are patent. Impression: 1. Patent [place] without stenosis, thrombosis nor aneurysm formation. 2. No hemodynamically significant stenosis of the internal carotid arteries per NASCET criteria.
[2020-03-11] MEDS ORDERED: hydrALAZINE 20 MG/ML VIAL SLOW IVP PRN (16:51)
[2020-03-11] MEDS ORDERED: Labetalol HCl 100 MG/20 ML VIAL SLOW IVP PRN (16:52)
[2020-03-11 17:19] VITALS: BMI 39.3
[2020-03-11 17:43] LABS: Troponin I 0.015 ng/mL (< 0.028)
[2020-03-11 20:25] LABS: Troponin I 0.044 ng/mL (< 0.028)
[2020-03-11] MEDS ORDERED: Atorvastatin Calcium 40 MG TAB PO SCH (21:00)
[2020-03-12 05:08] LABS: #Basophils 0.1 thou/uL (0.0-0.2); #Eosinphils 0.3 thou/uL (0.0-0.7); #Monocytes 0.5 thou/uL (0.11-0.59); #Neutrophils 2.4 thou/uL (1.40-6.50); %Basophils 1.4 % (0.0-1.0); %Eosinophils 4.9 % (0.0-10.0); %Lymphocytes 38.4 % (21.0-51.0); %Monocytes 9.5 % (0.0-10.0); %Neutrophils 45.9 % (42.0-75.0); Hemoglobin 15.8 g/dL (14.0-18.0); Mean Corpuscular HGB CONC 32.7 g/dL (32.0-36.0); Mean Corpuscular Hemoglobin 31.1 pg (27.0-31.0); Mean Platelet Volume 9.9 fL (7.4-10.4); Platelet Count 153 thou/uL (130-400); RBC Distribution Width 13.3 % (11.5-14.5); Red Blood Cell (RBC) Count 5.09 mill/uL (4.70-6.10); White Blood Cell (WBC) Count 5.2 thou/uL (4.8-10.8)
[2020-03-12 05:29] LABS: Anion Gap 12 mmol/L (10-20); BUN (Urea Nitrogen) 13 mg/dL (8.9-20.6); Calc. Creatinine Clearance 132 mL/min (70-130); Carbon Dioxide 28 mmol/L (22-29); Cardiac Risk 3.7 (Less than 4.5); Chloride 101 mmol/L (98-107); Cholesterol 180 mg/dl (< 200 Desired); Estimated GFR-MDRD 85; Glucose 225 mg/dL (70-105); HDL Cholesterol 49 mg/dL (>60 Neg Risk); LDL Cholesterol, Calculated 71 mg/dL; Potassium 3.9 mmol/L (3.5-5.1); Sodium 137 mmol/L (136-145); Triglycerides 300 mg/dL (Less than 150)
--- NOTE | 2020-03-12 05:42 | PDOC.FM ---
- Subjective Subjective: No acute overnight events. Reports he is still have difficulty with his tongue. He denies any difficulty with breathing or swallowing, and has been able to eat without difficulty. Speech is somewhat difficult for him, although he can be easily understood. Denies any headache, chest pain, SOB, diaphoresis, orthopnea , abdominal pain, N/V/D, or constipation. - Objective Vital Signs & Weight: Vital Signs (12 hours) Temp Pulse Resp BP Pulse Ox 03/12/20 03:14 97.8 F 69 20 198/113 H 98 03/11/20 23:48 97.4 F L 65 20 186/98 H 98 03/11/20 19:20 97.5 F L 67 20 192/110 H 99 Weight Weight 113.993 kg I&O: 03/10/20 03/11/20 03/12/20 06:59 06:59 06:59 Intake Total 150 Balance 150 Result Diagrams: 03/12/20 04:49 03/12/20 04:49 EKG Reviewed by me: Yes (Tele: NSR overnight) Phys Exam - Physical Examination Constitutional: NAD HEENT: PERRLA, moist MMs Neck: no nodes, supple, full ROM Respiratory: no wheezing, no rhonchi few rales bilaterally Cardiovascular: RRR, no significant murmur Gastrointestinal: soft, non-tender, positive bowel sounds rounded, obese Musculoskeletal: pulses present 1+ pitting edema bilateral Neurological: non-focal, moves all 4 limbs CN II-XII grossly intact except R tongue deviation, midline uvula Psychiatric: normal affect, A&O x 3 Skin: no rash Dx/Plan - Plan Plan: TIA vs ischemic CVA, likely New onset tongue deviation causing slurred speech. No other deficits at this time. CT head negative in ED. ASA 324mg given in ED. -Negative CTA head/neck and MRI brain -ASA 81mg daily -started atorvastatin 40mg; not taking statin in outpatient setting -will need outpatient neuro follow up Elevated Troponin initially negative troponin, second troponin in indeterminate range. Asymptomatic. -will trend one more troponin -will order 12 lead EKG CHF, possible Edema, rales on exam today and reported SOB with exertion. -BNP wnl at 86 today -Echo 08/2019 with EF 55-60% -will continue to monitor -recommend f/u in outpatient setting T2DM Likely poorly controlled, glucose 315 today. -No Hga1c on record in past 3 months, will check -Will resume home medications today HTN Permissive HTN for possible stroke yesterday. Remains hypertensive today. -MRI with no evidence of stroke -will resume home medications today PPx: lovenox Diet: heart healthy Dispo: Admit to stroke for observation.
[2020-03-12] MEDS: HumaLOG 300 UNITS/3 ML VIAL SC PRN ×2 (06:05→11:46)
[2020-03-12 08:28] LABS: Troponin I 0.025 ng/mL (< 0.028)
[2020-03-12] MEDS ORDERED: Enoxaparin Sodium 40 MG/0.4 ML SYRINGE SC SCH (09:00)
[2020-03-12] MEDS ORDERED: Aspirin 81 mg Enteric Coated Tablet PO SCH (09:00)
[2020-03-12] MEDS ORDERED: Insulin Glargine 10 UNITS in Pre-Filled Syringe 1 EACH SC SCH (09:00)
[2020-03-12 11:36] VITALS: BP 185/103; TEMP 97.3
[2020-03-12] MEDS ORDERED: Losartan/Hydrochlorothiazide 100 mg/25 mg Tablet PO SCH (11:45)
--- NOTE | 2020-03-13 00:28 | DIS ---
DATE OF ADMISSION: 03/11/2020 DATE OF DISCHARGE: 03/12/2020 RESIDENT: Fatimah Escobedo DO ADMITTING ATTENDING: Constantine Elena MD. DISCHARGE ATTENDING: Mo Thakur MD. CONSULTS: None. PROCEDURES: 1. CTA head and neck, patent lower [place] without stenosis, thrombosis, or aneurysms. No hemodynamically significant stenosis of the internal carotid artery per the NASCET criteria. 2. MRI brain, no acute intracranial process or mass. 3. CT head, no acute intracranial hemorrhage. 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 SECONDARY DIAGNOSES: 1. Hypertension. 2. Type 2 diabetes. DISCHARGE MEDICATIONS: 1. Metoprolol 100 mg p.o. daily. 2. Glimepiride 2 mg p.o. daily. 3. Lyrica 75 mg p.o. b.i.d. 4. Losartan/hydrochlorothiazide 100-25 mg daily. 5. Levemir 50 units subcu b.i.d. 6. Farxiga 10 mg p.o. daily. DISCONTINUED MEDICATIONS: None. HOSPITAL COURSE: This 44-year-old male was sent to the ED from his primary care office for right tongue deviation, slurred speech that has been ongoing for 2 days. In the ED, he was evaluated for a possible stroke. His CT head showed no acute intracranial bleeding. He was given 324 mg of aspirin and admitted to the stroke unit for further evaluation and treatment. Further imaging included CTA of the head and neck and MRI of the brain; both of which were negative for any stroke-related pathology. His neuro exam remained stable throughout his admission with his tongue deviation unchanging, but otherwise the remainder of his cranial nerve exam was grossly intact. He did not have any difficulty with breathing, eating, drinking, or swallowing. Given his stability and negative workup, he was discharged with instructions to follow up with Neurology in the outpatient setting for a possible isolated 12th nerve palsy. Additionally, he had hyperglycemia during this admission and his hemoglobin A1c was 9.8. Recommend followup of his diabetes regimen with his PCP. He also reports that he has not been taking a statin in the outpatient setting. His lipid panel here was not fasting and was significant for elevated triglycerides, but otherwise was within normal limits. DISPOSITION: Stable. DISCHARGE INSTRUCTIONS: Location: Home. Diet: Diabetic diet. Activity: As tolerated. Followup: Follow up with Neurology in the next 14 days and with PCP, Dr. Caterina Altman, in the next 7 days. Job ID: [id number]
--- NOTE | 2020-03-13 09:29 | PRG ---
DATE OF SERVICE: 03/12/2020 Please see the note from Dr. Escobedo for which I agree. Patient was seen, evaluated, discussed, and examined with the residents at bedside. Really, no other changes on him. The only issue with him is still just a right-sided deviation of his tongue and just that odd sensation in his mouth from that; but no other cranial nerve findings, no other neurologic findings. His workup so far has been completely normal. Assuming just an isolated 12th nerve issue. Definitely strange, but just seems to be that isolated. He has had plenty of imaging to rule out anything like a mass or any problems like that, so should be able to go home and will follow up as an outpatient with Neurology. Job ID: [id number]
== END 2020-03-12 13:30 | disposition home or self-care (01) ==
LOC: ERS 10:45 → ERHOLD 12:35 → 2SE 17:11
PROVIDERS: ADMIT Family Medicine; ATTEND Family Medicine
DX: K13.29 Other disturbances of oral epithelium, including tongue (principal); R60.0 Localized edema; I10 Essential (primary) hypertension; E11.65 Type 2 diabetes mellitus with hyperglycemia; N17.9 Acute kidney failure, unspecified; R79.89 Other specified abnormal findings of blood chemistry; Z79.4 Long term (current) use of insulin; Z79.899 Other long term (current) drug therapy
CPT/HCPCS: 36415; 36416; 70450; 70496; 70498; 70553; 71045; 80048; 80053; 80061; 80307; 82550; 83036; 83690; 83880; 84443; 84484; 85025; 85379; 93005; 93010; 96360; 96361; 96372; A9579; G0378; J1650; J1815; Q9967

== ENCOUNTER 2021-06-19 12:32 | Emergency (ER) | payer MEDICARE, MEDICAID | END 2021-06-19 13:48 | disposition home or self-care (01) | LOC: ERS 12:32 | DX: S43.401A Unspecified sprain of right shoulder joint, initial encounter (principal); I10 Essential (primary) hypertension; E11.9 Type 2 diabetes mellitus without complications; Z79.84 Long term (current) use of oral hypoglycemic drugs; Z79.4 Long term (current) use of insulin; Z79.899 Other long term (current) drug therapy; W19.XXXA Unspecified fall, initial encounter ==

== ENCOUNTER 2021-06-22 20:21 | Inpatient (IN) | payer MEDICARE, MEDICAID ==
[2021-06-22] MEDS ORDERED: PROVENTIL INHALER 6.7 G (200 INHALATIONS) ONE (21:01)
[2021-06-22] MEDS ORDERED: Labetalol HCl 100 MG/20 ML VIAL ONE (21:01)
[2021-06-22 21:03] LABS: #Eosinphils 0.2 thou/uL (0.0-0.7); #Lymphocytes 1.7 thou/uL (1.20-3.40); #Monocytes 0.4 thou/uL (0.11-0.59); #Neutrophils 3.4 thou/uL (1.40-6.50); %Basophils 0.4 % (0.0-1.0); %Eosinophils 2.9 % (0.0-10.0); %Lymphocytes 30.2 % (21.0-51.0); %Monocytes 7.1 % (0.0-10.0); %Neutrophils 59.4 % (42.0-75.0); Hemoglobin 14.6 g/dL (14.0-18.0); Mean Corpuscular HGB CONC 33.7 g/dL (32.0-36.0); Mean Corpuscular Hemoglobin 31.1 pg (27.0-31.0); Mean Corpuscular Volume 92.3 fL (78.0-98.0); Mean Platelet Volume 9.4 fL (7.4-10.4); Platelet Count 199 thou/uL (130-400); RBC Distribution Width 14.9 % (11.5-14.5); White Blood Cell (WBC) Count 5.7 thou/uL (4.8-10.8)
[2021-06-22] MEDS ORDERED: Albuterol 200 PUFF (6.7GM INHALER) ONE (21:04)
[2021-06-22] MEDS ORDERED: Nitroglycerin 2% Ointment 1 INCH/1 GM Packet ONE (21:41)
[2021-06-22] MEDS ORDERED: Furosemide 40 MG/4 ML VIAL ONE (21:48)
[2021-06-22 22:23] LABS: ALT (SGPT) 16 U/L (8-55); AST (SGOT) 23 U/L (5-34); Alkaline Phosphatase 112 U/L (40-110); Anion Gap 17 mmol/L (10-20); BUN (Urea Nitrogen) 18 mg/dL (8.9-20.6); Bilirubin, Total 0.6 mg/dL (0.2-1.2); Calc. Creatinine Clearance 0 mL/min (70-130); Calcium 9.1 mg/dL (7.8-10.44); Carbon Dioxide 23 mmol/L (22-29); Chloride 106 mmol/L (98-107); Globulin 2.9 g/dL (2.4-3.5); Glucose 230 mg/dL (70-105); Magnesium 2.1 mg/dL (1.6-2.6); Potassium 4.1 mmol/L (3.5-5.1); Protein, Total 6.9 g/dL (6.0-8.3); Sodium 142 mmol/L (136-145)
[2021-06-22 22:41] LABS: Alcohol Less than 10 mg/dL (Less than 10)
[2021-06-22 22:44] LABS: Acetaminophen Less than 6.0 mcg/mL (10.0-30.0); Lipase 43 U/L (8-78); Salicylate Less than 8.0 mg/dL (15.0-30.0)
[2021-06-23] MEDS ORDERED: Calcium Carbonate 500 MG ChewTAB PO PRN
[2021-06-23] MEDS ORDERED: Acetaminophen 325 MG TAB PO PRN
[2021-06-23] MEDS ORDERED: HumaLOG 300 UNITS/3 ML VIAL SC PRN (00:05)
[2021-06-23] MEDS ORDERED: Dextrose 5% in Water 1,000 ML IV PRN (00:05)
[2021-06-23] MEDS ORDERED: Dextrose 50% Abboject 50 ML SYRINGE SLOW IVP PRN (00:05)
[2021-06-23 00:22] VITALS: BMI 40.4
[2021-06-23 00:35] LABS: Troponin I 0.011 ng/mL (< 0.028)
[2021-06-23 01:09] LABS: Hemoglobin A1c Greater than 14.0 % (4.0-6.0)
[2021-06-23 06:06] LABS: Anion Gap 16 mmol/L (10-20); BUN (Urea Nitrogen) 20 mg/dL (8.9-20.6); Calc. Creatinine Clearance 111 mL/min (70-130); Calcium 9.2 mg/dL (7.8-10.44); Carbon Dioxide 25 mmol/L (22-29); Cardiac Risk 3.8 (Less than 4.5); Chloride 104 mmol/L (98-107); Cholesterol 163 mg/dl (< 200 Desired); Glucose 220 mg/dL (70-105); HDL Cholesterol 43 mg/dL (>60 Neg Risk); LDL Cholesterol, Calculated 54 mg/dL; Potassium 3.7 mmol/L (3.5-5.1); Sodium 141 mmol/L (136-145); Triglycerides 330 mg/dL (Less than 150)
[2021-06-23 06:30] LABS: Amphetamine Not Detected (NotDetected); Barbiturates Screen Not Detected (NotDetected); Benzodiazepine Screen Not Detected (NotDetected); Cocaine Metabolite Screen Not Detected (NotDetected); Methadone Not Detected (NotDetected); Methamphetamine Not Detected (NotDetected); Opiate Screen Not Detected (NotDetected); Oxycodone Screen Not Detected (NotDetected); Phencyclidine (PCP) Not Detected (NotDetected); THC/Cannabinoid Screen Not Detected (NotDetected); Tricyclic Screen Not Detected (NotDetected)
[2021-06-23] MEDS: HumaLOG 300 UNITS/3 ML VIAL SC PRN ×3 (06:45→16:59)
[2021-06-23] MEDS: Pregabalin 75 MG CAP PO SCH ×2 (09:04→20:11)
[2021-06-23] MEDS: Carvedilol 25 MG TAB PO SCH ×2 (09:04→20:11)
[2021-06-23] MEDS: NIFEdipine XL 30 MG TAB PO SCH (09:04)
[2021-06-23] MEDS: Enoxaparin Sodium 40 MG/0.4 ML SYRINGE SC SCH (09:04)
[2021-06-23] MEDS: Lantus 1000 UNITS/10 ML VIAL SC SCH ×2 (10:44→20:12)
[2021-06-23 12:19] LABS: SARS-CoV-2 PCR by NAA Not Detected (NotDetected)
[2021-06-23] MEDS ORDERED: Hydrocerin (Eucerin) Cream 120 gm Jar TOP PRN (14:01)
[2021-06-23] MEDS: Losartan/Hydrochlorothiazide 100 mg/25 mg Tablet PO SCH (20:11)
[2021-06-24 06:41] LABS: Anion Gap 14 mmol/L (10-20); BUN (Urea Nitrogen) 17 mg/dL (8.9-20.6); Calc. Creatinine Clearance 130 mL/min (70-130); Calcium 9.5 mg/dL (7.8-10.44); Carbon Dioxide 28 mmol/L (22-29); Chloride 103 mmol/L (98-107); Glucose 129 mg/dL (70-105); Sodium 141 mmol/L (136-145)
[2021-06-24] MEDS ORDERED: Furosemide 20 MG TAB PO SCH (08:45)
[2021-06-24] MEDS: Lantus 1000 UNITS/10 ML VIAL SC SCH ×2 (08:47→21:14)
[2021-06-24] MEDS: NIFEdipine XL 30 MG TAB PO SCH (08:51)
[2021-06-24] MEDS: Pregabalin 75 MG CAP PO SCH ×2 (08:51→21:09)
[2021-06-24] MEDS: Enoxaparin Sodium 40 MG/0.4 ML SYRINGE SC SCH (08:52)
[2021-06-24] MEDS: Carvedilol 25 MG TAB PO SCH ×2 (08:52→21:10)
[2021-06-24] MEDS: Atorvastatin Calcium 40 MG TAB PO SCH (08:52)
[2021-06-24] MEDS: Furosemide 20 MG TAB PO SCH (08:53)
[2021-06-24] MEDS ORDERED: Non-Formulary Item 1 EACH (Dexlansoprazole [Dexilant] 60 MG Cap.Dr.Bp) PO SCH (09:00)
[2021-06-24] MEDS ORDERED: Losartan/Hydrochlorothiazide 100 mg/25 mg Tablet PO SCH (09:00)
[2021-06-24] MEDS ORDERED: Ketotifen Fumarate 0.025% Ophth Soln 5 ml Bottle EA EYE SCH (11:35)
[2021-06-24] MEDS: HumaLOG 300 UNITS/3 ML VIAL SC PRN (17:22)
[2021-06-24] MEDS: Ketotifen Fumarate 0.025% Ophth Soln 5 ml Bottle EA EYE SCH (21:10)
[2021-06-24] MEDS: Losartan/Hydrochlorothiazide 100 mg/25 mg Tablet PO SCH (21:10)
[2021-06-25] MEDS: hydrALAZINE 20 MG/ML VIAL SLOW IVP PRN ×2 (00:37→05:59)
[2021-06-25 07:07] LABS: Anion Gap 13 mmol/L (10-20); BUN (Urea Nitrogen) 15 mg/dL (8.9-20.6); Calc. Creatinine Clearance 153 mL/min (70-130); Calcium 9.8 mg/dL (7.8-10.44); Carbon Dioxide 29 mmol/L (22-29); Chloride 101 mmol/L (98-107); Potassium 3.6 mmol/L (3.5-5.1); Sodium 139 mmol/L (136-145)
[2021-06-25 07:09] LABS: Glucose 49 mg/dL (70-105)
[2021-06-25] MEDS: Furosemide 20 MG TAB PO SCH (08:27)
[2021-06-25] MEDS: Atorvastatin Calcium 40 MG TAB PO SCH (08:27)
[2021-06-25] MEDS: NIFEdipine XL 30 MG TAB PO SCH (08:27)
[2021-06-25] MEDS: Hydrochlorothiazide 25 MG TAB PO SCH (08:27)
[2021-06-25] MEDS: Pregabalin 75 MG CAP PO SCH ×2 (08:28→20:25)
[2021-06-25] MEDS: Ketotifen Fumarate 0.025% Ophth Soln 5 ml Bottle EA EYE SCH ×2 (08:28→20:24)
[2021-06-25] MEDS: Carvedilol 25 MG TAB PO SCH ×2 (08:28→20:25)
[2021-06-25] MEDS: Enoxaparin Sodium 40 MG/0.4 ML SYRINGE SC SCH (08:28)
[2021-06-25] MEDS: Losartan 25 MG TAB PO SCH (08:32)
[2021-06-25] MEDS: Lantus 1000 UNITS/10 ML VIAL SC SCH ×2 (09:02→20:25)
[2021-06-26 06:39] LABS: Anion Gap 11 mmol/L (10-20); BUN (Urea Nitrogen) 21 mg/dL (8.9-20.6); Calc. Creatinine Clearance 115 mL/min (70-130); Calcium 9.5 mg/dL (7.8-10.44); Carbon Dioxide 31 mmol/L (22-29); Chloride 100 mmol/L (98-107); Glucose 110 mg/dL (70-105); Potassium 3.8 mmol/L (3.5-5.1); Sodium 138 mmol/L (136-145)
[2021-06-26] MEDS: Losartan 25 MG TAB PO SCH (08:30)
[2021-06-26] MEDS: Hydrochlorothiazide 25 MG TAB PO SCH (08:31)
[2021-06-26] MEDS: Pregabalin 75 MG CAP PO SCH (08:31)
[2021-06-26] MEDS: Carvedilol 25 MG TAB PO SCH ×2 (08:32→22:05)
[2021-06-26] MEDS: Atorvastatin Calcium 40 MG TAB PO SCH (08:33)
[2021-06-26] MEDS: Enoxaparin Sodium 40 MG/0.4 ML SYRINGE SC SCH (08:34)
[2021-06-26] MEDS: Furosemide 20 MG TAB PO SCH (08:34)
[2021-06-26] MEDS: Ketotifen Fumarate 0.025% Ophth Soln 5 ml Bottle EA EYE SCH ×2 (08:35→21:59)
[2021-06-26] MEDS ORDERED: FLU VACC QS2021-22(6MOS UP)/PF 60 MCG/0.5 ML SYRINGE IM ONE (09:00)
[2021-06-26] MEDS ORDERED: NIFEdipine XL 60 MG TAB PO SCH (09:00)
[2021-06-26] MEDS ORDERED: Lantus 1000 UNITS/10 ML VIAL SC SCH (09:00)
[2021-06-26] MEDS: Lantus 1000 UNITS/10 ML VIAL SC SCH (22:05)
[2021-06-27 06:23] LABS: Anion Gap 14 mmol/L (10-20); BUN (Urea Nitrogen) 21 mg/dL (8.9-20.6); Calc. Creatinine Clearance 119 mL/min (70-130); Calcium 9.6 mg/dL (7.8-10.44); Carbon Dioxide 29 mmol/L (22-29); Chloride 100 mmol/L (98-107); Glucose 212 mg/dL (70-105); Potassium 3.9 mmol/L (3.5-5.1); Sodium 139 mmol/L (136-145)
[2021-06-27] MEDS: HumaLOG 300 UNITS/3 ML VIAL SC PRN (06:36)
[2021-06-27] MEDS: Losartan 25 MG TAB PO SCH (08:30)
[2021-06-27] MEDS: Hydrochlorothiazide 25 MG TAB PO SCH (08:31)
[2021-06-27] MEDS: Furosemide 20 MG TAB PO SCH (08:31)
[2021-06-27] MEDS: Carvedilol 25 MG TAB PO SCH (08:32)
[2021-06-27] MEDS: Atorvastatin Calcium 40 MG TAB PO SCH (08:32)
[2021-06-27] MEDS: Enoxaparin Sodium 40 MG/0.4 ML SYRINGE SC SCH (08:33)
[2021-06-27] MEDS: Ketotifen Fumarate 0.025% Ophth Soln 5 ml Bottle EA EYE SCH (08:34)
[2021-06-27] MEDS ORDERED: Non-Formulary Item 1 EACH (Dapagliflozin Propanediol [Farxiga] 10 MG Tablet) PO SCH (09:00)
[2021-06-27] MEDS ORDERED: Empagliflozin 25 MG TAB PO SCH (09:00)
[2021-06-27] MEDS ORDERED: Lantus 1000 UNITS/10 ML VIAL SC SCH (09:00)
[2021-06-27] MEDS ORDERED: Pregabalin 75 MG CAP PO SCH (09:00)
[2021-06-27 13:11] VITALS: BP 138/82; TEMP 97.9
[2021-06-27] MEDS ORDERED: NIFEdipine XL 60 MG TAB PO SCH (21:00)
== END 2021-06-27 14:45 | disposition home or self-care (01) | DRG 896 ==
LOC: ERS 20:21 → 2SW 22:28 → OBSVTOIN 06-23 15:00
PROVIDERS: ADMIT Family Medicine; ATTEND Family Medicine
DX: F12.90 Cannabis use, unspecified, uncomplicated (principal); I50.33 Acute on chronic diastolic (congestive) heart failure; N17.9 Acute kidney failure, unspecified; I11.0 Hypertensive heart disease with heart failure; Z20.822 Contact with and (suspected) exposure to COVID-19; E11.42 Type 2 diabetes mellitus with diabetic polyneuropathy; R94.31 Abnormal electrocardiogram [ECG] [EKG]; E11.65 Type 2 diabetes mellitus with hyperglycemia; I16.0 Hypertensive urgency; H57.89 Other specified disorders of eye and adnexa; S80.811A Abrasion, right lower leg, initial encounter; W19.XXXA Unspecified fall, initial encounter; I27.20 Pulmonary hypertension, unspecified; E88.2 Lipomatosis, not elsewhere classified; T38.3X5A Adverse effect of insulin and oral hypoglycemic [antidiabetic] drugs, initial encounter; E11.649 Type 2 diabetes mellitus with hypoglycemia without coma; Z79.899 Other long term (current) drug therapy; Z98.41 Cataract extraction status, right eye; Z91.14 Patient's other noncompliance with medication regimen; Z79.4 Long term (current) use of insulin
CPT/HCPCS: 36415; 36416; 71045; 80048; 80053; 80061; 80306; 80307; 83036; 83690; 83735; 83880; 84443; 84484; 85025; 93005; 93306; 96372; 96374; 96375; G0378; J0360; J1650; J1815; J1940; U0003; U0005

== ENCOUNTER 2021-09-29 12:33 | Inpatient (IN) | payer MEDICARE, MEDICAID ==
[~2021-09-29 12:33] MED LIST: Iopamidol 370 76% 100 ML VIAL ONE
[2021-09-29] MEDS ORDERED: Dexamethasone 4 mg/ml Vial ONE (12:54)
[2021-09-29 13:04] LABS: #Eosinphils 0.1 thou/uL (0.0-0.7); #Lymphocytes 1.4 thou/uL (1.20-3.40); #Monocytes 0.6 thou/uL (0.11-0.59); #Neutrophils 6.8 thou/uL (1.40-6.50); %Basophils 0.1 % (0.0-1.0); %Lymphocytes 15.5 % (21.0-51.0); %Monocytes 6.3 % (0.0-10.0); %Neutrophils 77.1 % (42.0-75.0); Hemoglobin 15.4 g/dL (14.0-18.0); Mean Corpuscular HGB CONC 34.1 g/dL (32.0-36.0); Mean Corpuscular Hemoglobin 31.5 pg (27.0-31.0); Mean Corpuscular Volume 92.5 fL (78.0-98.0); Platelet Count 188 thou/uL (130-400); Red Blood Cell (RBC) Count 4.88 mill/uL (4.70-6.10); White Blood Cell (WBC) Count 8.8 thou/uL (4.8-10.8)
[2021-09-29 13:27] LABS: ALT (SGPT) 60 U/L (8-55); AST (SGOT) 54 U/L (5-34); Albumin 4.2 g/dL (3.5-5.0); Alkaline Phosphatase 122 U/L (40-110); Anion Gap 15 mmol/L (10-20); BUN (Urea Nitrogen) 16 mg/dL (8.9-20.6); Bilirubin, Total 1.5 mg/dL (0.2-1.2); Calc. Creatinine Clearance 0 mL/min (70-130); Calcium 8.8 mg/dL (7.8-10.44); Carbon Dioxide 24 mmol/L (22-29); Chloride 105 mmol/L (98-107); Globulin 3.1 g/dL (2.4-3.5); Glucose 216 mg/dL (70-105); Protein, Total 7.3 g/dL (6.0-8.3); Sodium 140 mmol/L (136-145)
[2021-09-29] MEDS ORDERED: Ondansetron PF 4 MG/2 ML Vial IVP PRN (14:07)
[2021-09-29] MEDS ORDERED: Acetaminophen 650 MG Suppository PR PRN (14:07)
[2021-09-29] MEDS ORDERED: Acetaminophen 325 MG TAB PO PRN (14:07)
[2021-09-29] MEDS ORDERED: Enoxaparin Sodium 40 MG/0.4 ML SYRINGE SC SCH (14:15)
[2021-09-29] MEDS ORDERED: Dextrose 5% in Water 1,000 ML IV PRN (14:17)
[2021-09-29] MEDS ORDERED: Dextrose 50% Abboject 50 ML SYRINGE SLOW IVP PRN (14:17)
[2021-09-29] MEDS ORDERED: HumaLOG 300 UNITS/3 ML VIAL SC PRN (14:17)
[2021-09-29 14:42] LABS: SARS-CoV-2 NAA Rapid Test Not Detected (NotDetected)
[2021-09-29] MEDS ORDERED: hydrALAZINE 20 MG/ML VIAL SLOW IVP PRN (15:41)
[2021-09-29 16:03] VITALS: BMI 38.3
[2021-09-29] MEDS ORDERED: Furosemide 40 MG/4 ML VIAL SLOW IVP SCH (16:30)
[2021-09-29] MEDS: guaiFENesin/Codeine 200 mg/20 mg 10 ml Cup PO PRN (17:13)
[2021-09-29] MEDS: HumaLOG 300 UNITS/3 ML VIAL SC PRN ×2 (17:14→20:32)
[2021-09-29 19:16] LABS: Hemoglobin A1c Greater than 14.0 % (4.0-6.0)
[2021-09-29] MEDS ORDERED: Albuterol 200 PUFF (6.7GM INHALER) INH PRN (19:40)
[2021-09-29] MEDS: Carvedilol 25 MG TAB PO SCH (20:20)
[2021-09-29] MEDS: Atorvastatin Calcium 40 MG TAB PO SCH (20:20)
[2021-09-29] MEDS: Dexamethasone 10 MG/ML VIAL SLOW IVP SCH (20:23)
[2021-09-29] MEDS: Lantus 1000 UNITS/10 ML VIAL SC SCH (20:31)
[2021-09-29] MEDS ORDERED: Famotidine 20 MG TAB PO SCH (21:00)
[2021-09-29] MEDS: Mometasone 100 MCG/Formoterol 5 MCG 120 PUFF INHALER INH SCH (21:40)
[2021-09-30] MEDS: HumaLOG 300 UNITS/3 ML VIAL SC PRN ×3 (05:30→16:09)
[2021-09-30 06:03] LABS: #Basophils 0.1 thou/uL (0.0-0.2); #Lymphocytes 0.9 thou/uL (1.20-3.40); #Monocytes 0.1 thou/uL (0.11-0.59); #Neutrophils 6.2 thou/uL (1.40-6.50); %Basophils 0.7 % (0.0-1.0); %Eosinophils 0.1 % (0.0-10.0); %Lymphocytes 12.9 % (21.0-51.0); %Neutrophils 84.4 % (42.0-75.0); Hemoglobin 14.7 g/dL (14.0-18.0); Mean Corpuscular HGB CONC 32.9 g/dL (32.0-36.0); Mean Corpuscular Hemoglobin 30.8 pg (27.0-31.0); Mean Corpuscular Volume 93.6 fL (78.0-98.0); Mean Platelet Volume 8.6 fL (7.4-10.4); Platelet Count 208 thou/uL (130-400); RBC Distribution Width 13.9 % (11.5-14.5); Red Blood Cell (RBC) Count 4.76 mill/uL (4.70-6.10); White Blood Cell (WBC) Count 7.3 thou/uL (4.8-10.8)
[2021-09-30 06:25] LABS: ALT (SGPT) 38 U/L (8-55); AST (SGOT) 20 U/L (5-34); Albumin 3.6 g/dL (3.5-5.0); Alkaline Phosphatase 94 U/L (40-110); Anion Gap 16 mmol/L (10-20); BUN (Urea Nitrogen) 23 mg/dL (8.9-20.6); Bilirubin, Total 1.1 mg/dL (0.2-1.2); Calc. Creatinine Clearance 138 mL/min (70-130); Carbon Dioxide 21 mmol/L (22-29); Chloride 105 mmol/L (98-107); Globulin 3.2 g/dL (2.4-3.5); Glucose 195 mg/dL (70-105); Potassium 3.8 mmol/L (3.5-5.1); Protein, Total 6.8 g/dL (6.0-8.3); Sodium 138 mmol/L (136-145)
[2021-09-30] MEDS ORDERED: Furosemide 40 MG/4 ML VIAL SLOW IVP SCH (08:45)
[2021-09-30] MEDS: Losartan 25 MG TAB PO SCH (09:03)
[2021-09-30] MEDS: Hydrochlorothiazide 25 MG TAB PO SCH (09:03)
[2021-09-30] MEDS: Carvedilol 25 MG TAB PO SCH ×2 (09:03→20:28)
[2021-09-30] MEDS: Mometasone 100 MCG/Formoterol 5 MCG 120 PUFF INHALER INH SCH ×2 (09:03→18:13)
[2021-09-30] MEDS: Lantus 1000 UNITS/10 ML VIAL SC SCH ×2 (09:04→20:29)
[2021-09-30] MEDS: Enoxaparin Sodium 40 MG/0.4 ML SYRINGE SC SCH (09:04)
[2021-09-30] MEDS: Dexamethasone 10 MG/ML VIAL SLOW IVP SCH (09:04)
[2021-09-30 17:57] LABS: SARS-CoV-2 PCR by NAA Not Detected (NotDetected)
[2021-09-30] MEDS: Atorvastatin Calcium 40 MG TAB PO SCH (20:28)
[2021-09-30] MEDS: guaiFENesin/Codeine 200 mg/20 mg 10 ml Cup PO PRN (20:37)
[2021-10-01] MEDS: HumaLOG 300 UNITS/3 ML VIAL SC PRN ×2 (05:10→12:02)
[2021-10-01] MEDS: guaiFENesin/Codeine 200 mg/20 mg 10 ml Cup PO PRN (05:10)
[2021-10-01] MEDS: Mometasone 100 MCG/Formoterol 5 MCG 120 PUFF INHALER INH SCH (05:14)
[2021-10-01 05:27] LABS: #Basophils 0.1 thou/uL (0.0-0.2); #Lymphocytes 1.3 thou/uL (1.20-3.40); #Monocytes 0.6 thou/uL (0.11-0.59); %Basophils 0.8 % (0.0-1.0); %Eosinophils 0.1 % (0.0-10.0); %Monocytes 5.8 % (0.0-10.0); %Neutrophils 80.4 % (42.0-75.0); Mean Corpuscular HGB CONC 32.5 g/dL (32.0-36.0); Mean Corpuscular Hemoglobin 30.2 pg (27.0-31.0); Mean Corpuscular Volume 92.7 fL (78.0-98.0); Mean Platelet Volume 8.4 fL (7.4-10.4); Platelet Count 245 thou/uL (130-400); Red Blood Cell (RBC) Count 4.97 mill/uL (4.70-6.10); White Blood Cell (WBC) Count 9.9 thou/uL (4.8-10.8)
[2021-10-01 05:54] LABS: ALT (SGPT) 30 U/L (8-55); AST (SGOT) 16 U/L (5-34); Albumin 3.7 g/dL (3.5-5.0); Alkaline Phosphatase 88 U/L (40-110); Anion Gap 13 mmol/L (10-20); BUN (Urea Nitrogen) 30 mg/dL (8.9-20.6); Calc. Creatinine Clearance 115 mL/min (70-130); Calcium 8.8 mg/dL (7.8-10.44); Carbon Dioxide 25 mmol/L (22-29); Chloride 101 mmol/L (98-107); Globulin 3.2 g/dL (2.4-3.5); Glucose 279 mg/dL (70-105); Potassium 3.5 mmol/L (3.5-5.1); Protein, Total 6.9 g/dL (6.0-8.3); Sodium 135 mmol/L (136-145)
[2021-10-01] MEDS: FLU VACC QS2021-22(6MOS UP)/PF 60 MCG/0.5 ML SYRINGE IM ONE ×2 (06:54→11:02)
[2021-10-01] MEDS: Hydrochlorothiazide 25 MG TAB PO SCH (08:12)
[2021-10-01] MEDS: Losartan 25 MG TAB PO SCH (08:12)
[2021-10-01] MEDS: Enoxaparin Sodium 40 MG/0.4 ML SYRINGE SC SCH (08:13)
[2021-10-01] MEDS: Lantus 1000 UNITS/10 ML VIAL SC SCH (08:13)
[2021-10-01] MEDS: Carvedilol 25 MG TAB PO SCH (08:13)
[2021-10-01 08:53] VITALS: BP 138/97; TEMP 98.7
== END 2021-10-01 12:40 | disposition home or self-care (01) | DRG 193 ==
LOC: ERS 12:33 → T4-A 14:13
PROVIDERS: ADMIT Family Medicine; ATTEND Family Medicine
PROC: 8E0ZXY6 Isolation (ICD-10-PCS; principal; 2021-09-29)
DX: J12.9 Viral pneumonia, unspecified (principal); J96.01 Acute respiratory failure with hypoxia; I50.33 Acute on chronic diastolic (congestive) heart failure; Z23 Encounter for immunization; Z20.822 Contact with and (suspected) exposure to COVID-19; I11.0 Hypertensive heart disease with heart failure; E78.5 Hyperlipidemia, unspecified; B30.9 Viral conjunctivitis, unspecified; I16.0 Hypertensive urgency; R94.31 Abnormal electrocardiogram [ECG] [EKG]; E11.65 Type 2 diabetes mellitus with hyperglycemia; J45.909 Unspecified asthma, uncomplicated; Z79.899 Other long term (current) drug therapy; Z79.4 Long term (current) use of insulin
CPT/HCPCS: 36415; 36416; 71045; 71275; 80053; 83036; 83605; 83880; 84145; 85025; 85652; 86140; 87040; 87633; 87804; 90471; 90686; 93005; 94760; 96374; G0008; J0360; J1100; J1650; J1815; J1940; Q9967; U0002; U0003; U0005

== ENCOUNTER 2021-10-16 15:07 | Observation (INO) | payer MEDICARE, MEDICAID ==
[2021-10-16 15:46] LABS: #Eosinphils 0.1 thou/uL (0.0-0.7); #Lymphocytes 1.7 thou/uL (1.20-3.40); #Monocytes 0.6 thou/uL (0.11-0.59); #Neutrophils 3.9 thou/uL (1.40-6.50); %Basophils 0.1 % (0.0-1.0); %Lymphocytes 26.7 % (21.0-51.0); %Monocytes 9.8 % (0.0-10.0); %Neutrophils 61.4 % (42.0-75.0); Hemoglobin 15.8 g/dL (14.0-18.0); Mean Corpuscular HGB CONC 32.8 g/dL (32.0-36.0); Mean Corpuscular Hemoglobin 30.9 pg (27.0-31.0); Mean Corpuscular Volume 94.4 fL (78.0-98.0); Mean Platelet Volume 7.9 fL (7.4-10.4); Platelet Count 196 thou/uL (130-400); RBC Distribution Width 13.9 % (11.5-14.5); Red Blood Cell (RBC) Count 5.11 mill/uL (4.70-6.10); White Blood Cell (WBC) Count 6.4 thou/uL (4.8-10.8)
[2021-10-16 16:06] LABS: ALT (SGPT) 23 U/L (8-55); AST (SGOT) 29 U/L (5-34); Albumin 3.8 g/dL (3.5-5.0); Alkaline Phosphatase 109 U/L (40-110); Anion Gap 12 mmol/L (10-20); BUN (Urea Nitrogen) 17 mg/dL (8.9-20.6); Bilirubin, Total 0.9 mg/dL (0.2-1.2); Calc. Creatinine Clearance 0 mL/min (70-130); Calcium 9.1 mg/dL (7.8-10.44); Carbon Dioxide 26 mmol/L (22-29); Chloride 106 mmol/L (98-107); Globulin 3.2 g/dL (2.4-3.5); Glucose 191 mg/dL (70-105); Potassium 4.1 mmol/L (3.5-5.1); Sodium 140 mmol/L (136-145)
[2021-10-16] MEDS ORDERED: Enoxaparin Sodium 30 MG/0.3 ML SYRINGE ONE (16:28)
[2021-10-16] MEDS ORDERED: Enoxaparin Sodium 100 MG/ML SYRINGE ONE (16:28)
[2021-10-16] MEDS ORDERED: Aspirin 325 MG TAB ONE (16:30)
[2021-10-16 16:35] LABS: CKMB 7.2 ng/mL (0-6.6)
[2021-10-16] MEDS ORDERED: Enoxaparin Sodium 60 MG/0.6 ML SYRINGE ONE (16:37)
[2021-10-16] MEDS ORDERED: Nitroglycerin 2% Ointment 1 INCH/1 GM Packet ONE (17:01)
[2021-10-16] MEDS ORDERED: Nitroglycerin 0.4 MG TAB 1 EACH ONE ×2 (17:01→17:03)
[2021-10-16] MEDS ORDERED: Guaifenesin DM 100-10/5 ML UDCUP PO PRN (17:54)
[2021-10-16] MEDS ORDERED: Acetaminophen 325 MG TAB PO PRN (17:54)
[2021-10-16 18:20] LABS: Bacteria/HPF None Seen HPF (None Seen); Bilirubin Negative (Negative); Blood, Urine 1+ (Negative); Clarity Clear (Clear); Glucose, Urine (Dipstick) Greater than 1000 mg/dL (Negative); Ketone, Urine Trace mg/dL (Negative); Leukocyte Negative Leu/uL (Negative); Nitrite Negative (Negative); Protein, Urine (Dipstick) 100 mg/dL (Neg-Trace); RBC/HPF 0-3 HPF (0-3); Squamous Epithelial None Seen HPF (0-3); Urobilinogen Normal mg/dL (Less than 2); WBC/HPF 0-3 HPF (0-3); pH, Urine 5.5 (5.0-9.0)
[2021-10-16 18:26] LABS: Amphetamine Not Detected (NotDetected); Barbiturates Screen Not Detected (NotDetected); Benzodiazepine Screen Not Detected (NotDetected); Cocaine Metabolite Screen Not Detected (NotDetected); Methadone Not Detected (NotDetected); Methamphetamine Not Detected (NotDetected); Opiate Screen Not Detected (NotDetected); Oxycodone Screen Not Detected (NotDetected); Phencyclidine (PCP) Not Detected (NotDetected); THC/Cannabinoid Screen Not Detected (NotDetected); Tricyclic Screen Not Detected (NotDetected)
[2021-10-16] MEDS ORDERED: Furosemide 20 MG/2 ML VIAL SLOW IVP SCH (18:45)
[2021-10-16 19:04] LABS: Troponin I 0.091 ng/mL (< 0.028)
[2021-10-16] MEDS ORDERED: Dextrose 50% Abboject 50 ML SYRINGE SLOW IVP PRN (19:21)
[2021-10-16] MEDS ORDERED: Dextrose 5% in Water 1,000 ML IV PRN (19:21)
[2021-10-16] MEDS ORDERED: HumaLOG 300 UNITS/3 ML VIAL SC PRN (19:21)
[2021-10-16] MEDS: Polymyxin B Sulf/Trimethoprim 10 ML OPHTH DROPS OP SCH (20:59)
[2021-10-16 21:00] LABS: Hemoglobin A1c 13.4 % (4.0-6.0)
[2021-10-16 21:03] LABS: CK (CPK) 303 U/L (30-200); Magnesium 1.9 mg/dL (1.6-2.6); Phosphorus 3.5 mg/dL (2.3-4.7)
[2021-10-16] MEDS: Carvedilol 25 MG TAB PO SCH (21:18)
[2021-10-16] MEDS: Lantus 1000 UNITS/10 ML VIAL SC SCH (21:18)
[2021-10-17 02:34] LABS: SARS-CoV-2 NAA Rapid Test Not Detected (NotDetected)
[2021-10-17 05:16] VITALS: BMI 37.5
[2021-10-17 05:35] LABS: #Basophils 0.1 thou/uL (0.0-0.2); #Eosinphils 0.1 thou/uL (0.0-0.7); #Lymphocytes 1.7 thou/uL (1.20-3.40); #Monocytes 0.6 thou/uL (0.11-0.59); %Basophils 1.2 % (0.0-1.0); %Eosinophils 2.7 % (0.0-10.0); %Lymphocytes 30.8 % (21.0-51.0); %Monocytes 11.2 % (0.0-10.0); %Neutrophils 54.2 % (42.0-75.0); Hemoglobin 14.8 g/dL (14.0-18.0); Mean Corpuscular HGB CONC 32.1 g/dL (32.0-36.0); Mean Corpuscular Hemoglobin 30.6 pg (27.0-31.0); Mean Corpuscular Volume 95.3 fL (78.0-98.0); Mean Platelet Volume 8.5 fL (7.4-10.4); Platelet Count 185 thou/uL (130-400); RBC Distribution Width 14.2 % (11.5-14.5); Red Blood Cell (RBC) Count 4.84 mill/uL (4.70-6.10); White Blood Cell (WBC) Count 5.5 thou/uL (4.8-10.8)
[2021-10-17 06:08] LABS: Anion Gap 15 mmol/L (10-20); BUN (Urea Nitrogen) 19 mg/dL (8.9-20.6); Calc. Creatinine Clearance 116 mL/min (70-130); Calcium 8.9 mg/dL (7.8-10.44); Carbon Dioxide 23 mmol/L (22-29); Cardiac Risk 4.6 (Less than 4.5); Chloride 109 mmol/L (98-107); Cholesterol 221 mg/dl (< 200 Desired); Glucose 180 mg/dL (70-105); HDL Cholesterol 48 mg/dL (>60 Neg Risk); LDL Cholesterol, Calculated 110 mg/dL; Potassium 3.6 mmol/L (3.5-5.1); Sodium 143 mmol/L (136-145); Triglycerides 315 mg/dL (Less than 150)
[2021-10-17] MEDS ORDERED: Enoxaparin Sodium 120 MG/0.8 ML SYRINGE SC SCH (09:00)
[2021-10-17] MEDS: Atorvastatin Calcium 40 MG TAB PO SCH (10:30)
[2021-10-17] MEDS: Losartan 25 MG TAB PO SCH (10:30)
[2021-10-17] MEDS: Carvedilol 25 MG TAB PO SCH ×2 (10:30→21:39)
[2021-10-17] MEDS: Hydrochlorothiazide 25 MG TAB PO SCH (10:31)
[2021-10-17] MEDS: Empagliflozin 25 MG TAB PO SCH (10:31)
[2021-10-17] MEDS: Enoxaparin Sodium 40 MG/0.4 ML SYRINGE SC SCH (10:31)
[2021-10-17] MEDS: Polymyxin B Sulf/Trimethoprim 10 ML OPHTH DROPS OP SCH ×4 (10:33→21:44)
[2021-10-17] MEDS: Lantus 1000 UNITS/10 ML VIAL SC SCH ×2 (10:34→21:41)
[2021-10-17] MEDS: HumaLOG 300 UNITS/3 ML VIAL SC PRN (12:31)
[2021-10-17] MEDS: hydrALAZINE 20 MG/ML VIAL SLOW IVP PRN ×2 (15:45→23:18)
[2021-10-17] MEDS: Mometasone 200 MCG/Formoterol 5 MCG 120 PUFF INHALER INH SCH (18:23)
[2021-10-18 05:15] LABS: Anion Gap 13 mmol/L (10-20); BUN (Urea Nitrogen) 15 mg/dL (8.9-20.6); Calc. Creatinine Clearance 143 mL/min (70-130); Calcium 9.6 mg/dL (7.8-10.44); Carbon Dioxide 25 mmol/L (22-29); Chloride 108 mmol/L (98-107); Glucose 141 mg/dL (70-105); Potassium 3.5 mmol/L (3.5-5.1); Sodium 142 mmol/L (136-145)
[2021-10-18] MEDS: Mometasone 200 MCG/Formoterol 5 MCG 120 PUFF INHALER INH SCH (08:15)
[2021-10-18] MEDS ORDERED: predniSONE 20 MG TAB PO SCH (09:15)
[2021-10-18] MEDS: Losartan 25 MG TAB PO SCH (09:23)
[2021-10-18] MEDS: Carvedilol 25 MG TAB PO SCH (09:23)
[2021-10-18] MEDS: Hydrochlorothiazide 25 MG TAB PO SCH (09:23)
[2021-10-18] MEDS: Enoxaparin Sodium 40 MG/0.4 ML SYRINGE SC SCH (09:24)
[2021-10-18] MEDS: Atorvastatin Calcium 40 MG TAB PO SCH (09:24)
[2021-10-18] MEDS: Empagliflozin 25 MG TAB PO SCH (09:24)
[2021-10-18] MEDS: Polymyxin B Sulf/Trimethoprim 10 ML OPHTH DROPS OP SCH ×2 (09:25→12:28)
[2021-10-18] MEDS: Lantus 1000 UNITS/10 ML VIAL SC SCH (09:25)
[2021-10-18 11:18] LABS: ANA Symphony (Qualitative) Negative (Negative); ANA Symphony (Quantitative) 0.2 Ratio (< 0.7 Negative); dsDNA IgG Antibody 2.3 IU/mL (<10 Negative)
[2021-10-18 11:49] VITALS: BP 143/86; TEMP 98
[2021-10-18 12:12] LABS: CCP IgG Antibody 0.9 EliAU/mL (<7 Negative); EliA RAS New Method **** NEW METHOD ****; Rheumatoid Factor IgM Antibody 1.1 IU/mL (<3.5 Negative)
[2021-10-18] MEDS: HumaLOG 300 UNITS/3 ML VIAL SC PRN (12:27)
== END 2021-10-18 14:45 | disposition home or self-care (01) ==
LOC: ERS 15:07 → 2SW 18:00
PROVIDERS: ADMIT Family Medicine; ATTEND Family Medicine
DX: J45.901 Unspecified asthma with (acute) exacerbation (principal); R65.11 Systemic inflammatory response syndrome (SIRS) of non-infectious origin with acute organ dysfunction; H10.33 Unspecified acute conjunctivitis, bilateral; Z20.822 Contact with and (suspected) exposure to COVID-19; I12.9 Hypertensive chronic kidney disease with stage 1 through stage 4 chronic kidney disease, or unspecified chronic kidney disease; E11.22 Type 2 diabetes mellitus with diabetic chronic kidney disease; N18.2 Chronic kidney disease, stage 2 (mild); N17.9 Acute kidney failure, unspecified; E78.5 Hyperlipidemia, unspecified; G89.29 Other chronic pain; M25.511 Pain in right shoulder; R91.8 Other nonspecific abnormal finding of lung field; E66.9 Obesity, unspecified; Z68.36 Body mass index [BMI] 36.0-36.9, adult; Z79.4 Long term (current) use of insulin; Z79.899 Other long term (current) drug therapy
CPT/HCPCS: 0240U; 71045; 71275; 80048 ×2; 80061; 80306; 82550; 82553; 82570; 82962 ×3; 83036; 83520; 83735; 83880; 84100; 84484 ×2; 84540; 85025; 85379; 86038; 86200; 86225; 93005; 93970; 94640 ×3; 94760; 96372 ×3; 96374; 96375; 96376; 99285; G0378 ×4; 36415; 36416; 80053; 81003; 81015; 84443; J0360; J1650; J1815; J1940; J7512; J7620; Q9967

== ENCOUNTER 2022-05-31 20:34 | Emergency (ER) | payer MEDICARE, MEDICAID | END 2022-05-31 22:10 | disposition home or self-care (01) | LOC: ERS 20:34 | DX: L03.031 Cellulitis of right toe (principal); I10 Essential (primary) hypertension; E11.9 Type 2 diabetes mellitus without complications | CPT/HCPCS: 99283 ==

== ENCOUNTER 2022-07-23 18:10 | Inpatient (IN) | payer MEDICARE, MEDICAID ==
[2022-07-23] MEDS ORDERED: Nitroglycerin 2% Ointment 1 INCH/1 GM Packet ONE (18:38)
[2022-07-23 19:01] LABS: #Eosinphils 0.1 thou/uL (0.0-0.7); #Lymphocytes 1.7 thou/uL (1.20-3.40); #Monocytes 0.5 thou/uL (0.11-0.59); %Basophils 0.1 % (0.0-1.0); %Eosinophils 0.6 % (0.0-10.0); %Lymphocytes 18.3 % (21.0-51.0); %Monocytes 4.9 % (0.0-10.0); %Neutrophils 76.1 % (42.0-75.0); Hemoglobin 13.5 g/dL (14.0-18.0); Mean Corpuscular HGB CONC 32.6 g/dL (32.0-36.0); Mean Corpuscular Hemoglobin 31.3 pg (27.0-31.0); Mean Platelet Volume 8.9 fL (7.4-10.4); Platelet Count 178 10x3/uL (130-400); RBC Distribution Width 16.2 % (11.5-14.5); Red Blood Cell (RBC) Count 4.32 mill/uL (4.70-6.10); White Blood Cell (WBC) Count 9.2 10x3/uL (4.8-10.8)
[2022-07-23 19:27] LABS: ALT (SGPT) 16 U/L (8-55); AST (SGOT) 20 U/L (5-34); Albumin 3.4 g/dL (3.5-5.0); Alkaline Phosphatase 94 U/L (40-110); Anion Gap 13 mmol/L (10-20); BUN (Urea Nitrogen) 18 mg/dL (8.9-20.6); Bilirubin, Total 1.6 mg/dL (0.2-1.2); Calc. Creatinine Clearance 0 mL/min (70-130); Calcium 8.7 mg/dL (7.8-10.44); Carbon Dioxide 27 mmol/L (22-29); Chloride 105 mmol/L (98-107); Estimated GFR 60; Globulin 3.5 g/dL (2.4-3.5); Glucose 173 mg/dL (70-105); Potassium 4.2 mmol/L (3.5-5.1); Protein, Total 6.9 g/dL (6.0-8.3); Sodium 141 mmol/L (136-145)
[2022-07-23 19:46] LABS: CKMB 3.5 ng/mL (0-6.6)
[2022-07-23] MEDS ORDERED: Azithromycin 500 MG VIAL ONE (20:25)
[2022-07-23] MEDS ORDERED: Aspirin Chewable 81 MG TAB ONE (20:25)
[2022-07-23 20:59] LABS: SARS-CoV-2 NAA Rapid Test Not Detected (NotDetected)
[2022-07-23] MEDS ORDERED: Dextrose 5% in Water 1,000 ML IV PRN (21:29)
[2022-07-23] MEDS ORDERED: Dextrose 50% Abboject 50 ML SYRINGE SLOW IVP PRN (21:29)
[2022-07-23] MEDS ORDERED: cefTRIAXone\\ROCEPHIN 1 GM VIAL ONE (21:42)
[2022-07-23] MEDS ORDERED: Ondansetron ODT 4 MG TAB PO PRN (22:07)
[2022-07-23] MEDS ORDERED: Acetaminophen 325 MG TAB PO PRN (22:07)
[2022-07-23 22:16] LABS: Troponin I 0.133 ng/mL (< 0.028)
[2022-07-23] MEDS ORDERED: predniSONE 20 MG TAB PO SCH (22:30)
[2022-07-24] MEDS ORDERED: NIFEdipine XL 60 MG TAB PO SCH ×2 (00:30→09:00)
[2022-07-24 01:49] LABS: Troponin I 0.117 ng/mL (< 0.028)
[2022-07-24] MEDS ORDERED: Furosemide 20 MG/2 ML VIAL SLOW IVP SCH (02:00)
[2022-07-24] MEDS ORDERED: hydrALAZINE 20 MG/ML VIAL SLOW IVP SCH (04:15)
[2022-07-24 04:56] LABS: #Lymphocytes 1.3 thou/uL (1.20-3.40); #Monocytes 0.3 thou/uL (0.11-0.59); #Neutrophils 8.6 thou/uL (1.40-6.50); %Basophils 0.1 % (0.0-1.0); %Eosinophils 0.3 % (0.0-10.0); %Lymphocytes 12.6 % (21.0-51.0); %Monocytes 2.5 % (0.0-10.0); %Neutrophils 84.6 % (42.0-75.0); Hemoglobin 13.4 g/dL (14.0-18.0); Mean Corpuscular HGB CONC 32.8 g/dL (32.0-36.0); Mean Corpuscular Hemoglobin 31.4 pg (27.0-31.0); Mean Corpuscular Volume 95.9 fl (78.0-98.0); Mean Platelet Volume 9.5 fL (7.4-10.4); Platelet Count 176 10x3/uL (130-400); Red Blood Cell (RBC) Count 4.26 mill/uL (4.70-6.10); White Blood Cell (WBC) Count 10.1 10x3/uL (4.8-10.8)
[2022-07-24 04:57] LABS: Hemoglobin A1c 8.3 % (4.0-6.0)
[2022-07-24 05:21] LABS: Troponin I 0.097 ng/mL (< 0.028)
[2022-07-24 05:30] LABS: ALT (SGPT) 14 U/L (8-55); AST (SGOT) 15 U/L (5-34); Albumin 3.4 g/dL (3.5-5.0); Alkaline Phosphatase 90 U/L (40-110); Anion Gap 14 mmol/L (10-20); BUN (Urea Nitrogen) 18 mg/dL (8.9-20.6); Bilirubin, Total 1.5 mg/dL (0.2-1.2); Calc. Creatinine Clearance 122 mL/min (70-130); Calcium 8.2 mg/dL (7.8-10.44); Carbon Dioxide 26 mmol/L (22-29); Chloride 105 mmol/L (98-107); Estimated GFR 72; Globulin 2.9 g/dL (2.4-3.5); Glucose 218 mg/dL (70-105); Potassium 3.8 mmol/L (3.5-5.1); Protein, Total 6.3 g/dL (6.0-8.3); Sodium 141 mmol/L (136-145)
[2022-07-24] MEDS: HumaLOG 300 UNITS/3 ML VIAL SC PRN (06:37)
[2022-07-24] MEDS: Mometasone 100 MCG/Formoterol 5 MCG 120 PUFF INHALER INH SCH ×2 (07:47→19:04)
[2022-07-24] MEDS ORDERED: Famotidine 20 MG TAB PO SCH (09:00)
[2022-07-24] MEDS ORDERED: Losartan 25 MG TAB PO SCH (09:00)
[2022-07-24] MEDS ORDERED: Insulin Glargine 30 UNITS/0.3 ML VIAL SC SCH (09:00)
[2022-07-24] MEDS: Carvedilol 25 MG TAB PO SCH ×2 (09:36→21:14)
[2022-07-24] MEDS: Clopidogrel Bisulfate 75 MG TAB PO SCH (09:36)
[2022-07-24] MEDS: Empagliflozin 25 MG TAB PO SCH (09:37)
[2022-07-24] MEDS: predniSONE 20 MG TAB PO SCH (09:37)
[2022-07-24] MEDS: Enoxaparin Sodium 40 MG/0.4 ML SYRINGE SC SCH (09:37)
[2022-07-24] MEDS: Glimepiride 4 MG TAB PO SCH (09:37)
[2022-07-24] MEDS: Spironolactone 25 MG TAB PO SCH (09:38)
[2022-07-24 13:17] VITALS: BMI 40.8
[2022-07-24] MEDS ORDERED: Azithromycin 500 MG in Sodium Chloride 0.9% 250 ML 250 ML IVPB SCH (21:00)
[2022-07-24] MEDS: Doxycycline 100 MG CAP PO SCH (21:14)
[2022-07-24] MEDS: Rosuvastatin 10 MG TAB PO SCH (21:14)
[2022-07-24] MEDS: NIFEdipine XL 60 MG TAB PO SCH (21:15)
[2022-07-24] MEDS: Insulin Glargine 30 UNITS/0.3 ML VIAL SC SCH (21:15)
[2022-07-24] MEDS ORDERED: cefTRIAXone\\ROCEPHIN 1 GM in Sodium Chloride 0.9% 100 ML IVPB SCH (22:00)
[2022-07-25 04:55] LABS: #Lymphocytes 1.3 thou/uL (1.20-3.40); #Monocytes 0.6 thou/uL (0.11-0.59); #Neutrophils 6.1 thou/uL (1.40-6.50); %Basophils 0.2 % (0.0-1.0); %Eosinophils 0.2 % (0.0-10.0); %Lymphocytes 15.8 % (21.0-51.0); %Monocytes 7.2 % (0.0-10.0); %Neutrophils 76.6 % (42.0-75.0); Hemoglobin 12.9 g/dL (14.0-18.0); Mean Corpuscular HGB CONC 32.1 g/dL (32.0-36.0); Mean Corpuscular Hemoglobin 30.7 pg (27.0-31.0); Mean Corpuscular Volume 95.6 fl (78.0-98.0); Mean Platelet Volume 9.1 fL (7.4-10.4); Platelet Count 184 10x3/uL (130-400); RBC Distribution Width 16.2 % (11.5-14.5); Red Blood Cell (RBC) Count 4.18 mill/uL (4.70-6.10)
[2022-07-25 05:07] LABS: ALT (SGPT) 14 U/L (8-55); AST (SGOT) 13 U/L (5-34); Albumin 3.3 g/dL (3.5-5.0); Alkaline Phosphatase 80 U/L (40-110); Anion Gap 14 mmol/L (10-20); BUN (Urea Nitrogen) 27 mg/dL (8.9-20.6); Bilirubin, Total 1.5 mg/dL (0.2-1.2); Calc. Creatinine Clearance 120 mL/min (70-130); Calcium 8.4 mg/dL (7.8-10.44); Carbon Dioxide 26 mmol/L (22-29); Chloride 104 mmol/L (98-107); Estimated GFR 70; Glucose 190 mg/dL (70-105); Potassium 3.8 mmol/L (3.5-5.1); Protein, Total 6.3 g/dL (6.0-8.3); Sodium 140 mmol/L (136-145)
[2022-07-25] MEDS: HumaLOG 300 UNITS/3 ML VIAL SC PRN ×3 (05:48→16:54)
[2022-07-25] MEDS: Mometasone 100 MCG/Formoterol 5 MCG 120 PUFF INHALER INH SCH ×2 (08:09→21:18)
[2022-07-25] MEDS: Clopidogrel Bisulfate 75 MG TAB PO SCH (09:06)
[2022-07-25] MEDS: Enoxaparin Sodium 40 MG/0.4 ML SYRINGE SC SCH (09:06)
[2022-07-25] MEDS: Carvedilol 25 MG TAB PO SCH ×2 (09:06→20:33)
[2022-07-25] MEDS: Glimepiride 4 MG TAB PO SCH (09:06)
[2022-07-25] MEDS: Doxycycline 100 MG CAP PO SCH ×2 (09:06→20:33)
[2022-07-25] MEDS: Empagliflozin 25 MG TAB PO SCH (09:06)
[2022-07-25] MEDS: Losartan 25 MG TAB PO SCH (09:07)
[2022-07-25] MEDS: Insulin Glargine 30 UNITS/0.3 ML VIAL SC SCH ×2 (09:07→20:33)
[2022-07-25] MEDS: predniSONE 20 MG TAB PO SCH (09:08)
[2022-07-25] MEDS: Spironolactone 25 MG TAB PO SCH (09:08)
[2022-07-25] MEDS: Rosuvastatin 10 MG TAB PO SCH (20:33)
[2022-07-25] MEDS: NIFEdipine XL 60 MG TAB PO SCH (20:33)
[2022-07-25] MEDS: Budesonide 0.5 MG/2 ML NEB NEB SCH (21:17)
[2022-07-26 04:54] LABS: #Eosinphils 0.1 thou/uL (0.0-0.7); #Lymphocytes 1.8 thou/uL (1.20-3.40); #Monocytes 0.6 thou/uL (0.11-0.59); #Neutrophils 5.5 thou/uL (1.40-6.50); %Basophils 0.1 % (0.0-1.0); %Eosinophils 0.7 % (0.0-10.0); %Lymphocytes 22.4 % (21.0-51.0); %Monocytes 7.7 % (0.0-10.0); %Neutrophils 69.1 % (42.0-75.0); Hemoglobin 12.6 g/dL (14.0-18.0); Mean Corpuscular HGB CONC 31.8 g/dL (32.0-36.0); Mean Corpuscular Hemoglobin 30.6 pg (27.0-31.0); Mean Corpuscular Volume 96.2 fl (78.0-98.0); Platelet Count 219 10x3/uL (130-400); RBC Distribution Width 16.1 % (11.5-14.5); Red Blood Cell (RBC) Count 4.12 mill/uL (4.70-6.10); White Blood Cell (WBC) Count 7.9 10x3/uL (4.8-10.8)
[2022-07-26 05:17] LABS: ALT (SGPT) 11 U/L (8-55); AST (SGOT) 12 U/L (5-34); Albumin 3.3 g/dL (3.5-5.0); Alkaline Phosphatase 74 U/L (40-110); Anion Gap 13 mmol/L (10-20); BUN (Urea Nitrogen) 25 mg/dL (8.9-20.6); Bilirubin, Total 1.1 mg/dL (0.2-1.2); Calc. Creatinine Clearance 124 mL/min (70-130); Calcium 8.6 mg/dL (7.8-10.44); Carbon Dioxide 25 mmol/L (22-29); Chloride 106 mmol/L (98-107); Estimated GFR 73; Globulin 3.3 g/dL (2.4-3.5); Glucose 104 mg/dL (70-105); Potassium 3.6 mmol/L (3.5-5.1); Protein, Total 6.6 g/dL (6.0-8.3); Sodium 140 mmol/L (136-145)
[2022-07-26] MEDS: Budesonide 0.5 MG/2 ML NEB NEB SCH ×2 (07:01→19:22)
[2022-07-26] MEDS: Mometasone 100 MCG/Formoterol 5 MCG 120 PUFF INHALER INH SCH ×2 (07:04→19:22)
[2022-07-26] MEDS: Enoxaparin Sodium 40 MG/0.4 ML SYRINGE SC SCH (09:34)
[2022-07-26] MEDS: Losartan 25 MG TAB PO SCH (09:34)
[2022-07-26] MEDS: Insulin Glargine 30 UNITS/0.3 ML VIAL SC SCH ×2 (09:34→21:00)
[2022-07-26] MEDS: Glimepiride 4 MG TAB PO SCH (09:34)
[2022-07-26] MEDS: Carvedilol 25 MG TAB PO SCH ×2 (09:34→21:00)
[2022-07-26] MEDS: NIFEdipine XL 90 MG TAB PO SCH (09:35)
[2022-07-26] MEDS: predniSONE 20 MG TAB PO SCH (09:36)
[2022-07-26] MEDS: Doxycycline 100 MG CAP PO SCH ×2 (09:36→21:00)
[2022-07-26] MEDS: Spironolactone 25 MG TAB PO SCH (09:36)
[2022-07-26] MEDS: Clopidogrel Bisulfate 75 MG TAB PO SCH (09:36)
[2022-07-26] MEDS: Empagliflozin 25 MG TAB PO SCH (09:37)
[2022-07-26] MEDS: HumaLOG 300 UNITS/3 ML VIAL SC PRN (16:17)
[2022-07-26] MEDS: Rosuvastatin 10 MG TAB PO SCH (21:00)
[2022-07-27 04:33] LABS: #Lymphocytes 1.1 thou/uL (1.20-3.40); #Monocytes 0.4 thou/uL (0.11-0.59); #Neutrophils 4.9 thou/uL (1.40-6.50); %Basophils 0.1 % (0.0-1.0); %Eosinophils 0.1 % (0.0-10.0); %Lymphocytes 17.5 % (21.0-51.0); %Monocytes 5.7 % (0.0-10.0); %Neutrophils 76.6 % (42.0-75.0); Hemoglobin 13.3 g/dL (14.0-18.0); Mean Corpuscular HGB CONC 31.8 g/dL (32.0-36.0); Mean Corpuscular Hemoglobin 30.5 pg (27.0-31.0); Mean Corpuscular Volume 95.9 fl (78.0-98.0); Mean Platelet Volume 9.3 fL (7.4-10.4); Platelet Count 228 10x3/uL (130-400); RBC Distribution Width 15.9 % (11.5-14.5); Red Blood Cell (RBC) Count 4.37 mill/uL (4.70-6.10); White Blood Cell (WBC) Count 6.4 10x3/uL (4.8-10.8)
[2022-07-27 04:57] LABS: ALT (SGPT) 12 U/L (8-55); AST (SGOT) 11 U/L (5-34); Albumin 3.4 g/dL (3.5-5.0); Alkaline Phosphatase 80 U/L (40-110); Anion Gap 11 mmol/L (10-20); BUN (Urea Nitrogen) 31 mg/dL (8.9-20.6); Bilirubin, Total 0.9 mg/dL (0.2-1.2); Calc. Creatinine Clearance 121 mL/min (70-130); Calcium 8.8 mg/dL (7.8-10.44); Carbon Dioxide 25 mmol/L (22-29); Chloride 106 mmol/L (98-107); Estimated GFR 71; Globulin 3.4 g/dL (2.4-3.5); Glucose 188 mg/dL (70-105); Potassium 4.1 mmol/L (3.5-5.1); Protein, Total 6.8 g/dL (6.0-8.3); Sodium 138 mmol/L (136-145)
[2022-07-27] MEDS: NIFEdipine XL 90 MG TAB PO SCH (06:40)
[2022-07-27] MEDS: Budesonide 0.5 MG/2 ML NEB NEB SCH (08:12)
[2022-07-27] MEDS: Mometasone 100 MCG/Formoterol 5 MCG 120 PUFF INHALER INH SCH (08:13)
[2022-07-27] MEDS: Doxycycline 100 MG CAP PO SCH (08:53)
[2022-07-27] MEDS: Losartan 25 MG TAB PO SCH (08:54)
[2022-07-27] MEDS: Empagliflozin 25 MG TAB PO SCH (08:54)
[2022-07-27] MEDS: Carvedilol 25 MG TAB PO SCH (08:54)
[2022-07-27] MEDS: Insulin Glargine 30 UNITS/0.3 ML VIAL SC SCH (08:54)
[2022-07-27] MEDS: Glimepiride 4 MG TAB PO SCH (08:54)
[2022-07-27] MEDS: Enoxaparin Sodium 40 MG/0.4 ML SYRINGE SC SCH (08:54)
[2022-07-27] MEDS: predniSONE 20 MG TAB PO SCH (08:55)
[2022-07-27] MEDS ORDERED: Spironolactone 25 MG TAB PO SCH (09:00)
[2022-07-27] MEDS: Clopidogrel Bisulfate 75 MG TAB PO SCH (10:02)
[2022-07-27 12:33] VITALS: BP 119/56; TEMP 97.9
[2022-07-28] MEDS ORDERED: Spironolactone 25 MG TAB PO SCH (08:00)
== END 2022-07-27 12:10 | disposition home or self-care (01) | DRG 193 ==
LOC: ERS 18:10 → 2NO 20:51
PROVIDERS: ADMIT Student in an Organized Health Care Education/Training Program; ATTEND Student in an Organized Health Care Education/Training Program
PROC: 0HBMXZZ Excision of Right Foot Skin, External Approach (ICD-10-PCS; principal; 2022-07-25)
DX: J10.01 Influenza due to other identified influenza virus with the same other identified influenza virus pneumonia (principal); J96.01 Acute respiratory failure with hypoxia; J44.1 Chronic obstructive pulmonary disease with (acute) exacerbation; J44.0 Chronic obstructive pulmonary disease with (acute) lower respiratory infection; J45.901 Unspecified asthma with (acute) exacerbation; I50.32 Chronic diastolic (congestive) heart failure; N17.9 Acute kidney failure, unspecified; I13.0 Hypertensive heart and chronic kidney disease with heart failure and stage 1 through stage 4 chronic kidney disease, or unspecified chronic kidney disease; E78.5 Hyperlipidemia, unspecified; G47.33 Obstructive sleep apnea (adult) (pediatric); I16.0 Hypertensive urgency; E11.22 Type 2 diabetes mellitus with diabetic chronic kidney disease; N18.9 Chronic kidney disease, unspecified; E11.621 Type 2 diabetes mellitus with foot ulcer; L97.519 Non-pressure chronic ulcer of other part of right foot with unspecified severity; L57.0 Actinic keratosis; Z79.4 Long term (current) use of insulin; Z79.51 Long term (current) use of inhaled steroids; Z79.899 Other long term (current) drug therapy; Z79.84 Long term (current) use of oral hypoglycemic drugs
CPT/HCPCS: 36415; 36416; 71045; 80053; 82553; 83036; 83880; 84145; 84484; 85025; 87040; 87804; 88305; 93005; 93306; 94640; 94660; 96374; 96375; 97139; J0360; J0456; J0696; J1650; J1815; J1940; J7512; J7620; J7626; U0002

== ENCOUNTER 2023-02-06 13:26 | Inpatient (IN) | payer MEDICARE, MEDICAID ==
[2023-02-06 13:54] LABS: #Eosinphils 0.2 thou/uL (0.0-0.7); #Monocytes 0.5 thou/uL (0.11-0.59); #Neutrophils 4.1 thou/uL (1.40-6.50); %Basophils 0.7 % (0.0-1.0); %Eosinophils 2.6 % (0.0-10.0); %Lymphocytes 18.7 % (21.0-51.0); %Monocytes 8.3 % (0.0-10.0); %Neutrophils 69.4 % (42.0-75.0); Hemoglobin 13.8 g/dL (14.0-18.0); Mean Corpuscular HGB CONC 33.7 g/dL (32.0-36.0); Mean Corpuscular Hemoglobin 30.8 pg (27.0-31.0); Mean Corpuscular Volume 91.5 fl (78.0-98.0); Mean Platelet Volume 10.1 fL (7.4-10.4); Platelet Count 229 10x3/uL (130-400); RBC Distribution Width 14.8 % (11.5-14.5); Red Blood Cell (RBC) Count 4.48 mill/uL (4.70-6.10); White Blood Cell (WBC) Count 5.9 10x3/uL (4.8-10.8)
[2023-02-06 14:16] LABS: ALT (SGPT) 13 U/L (8-55); AST (SGOT) 21 U/L (5-34); Albumin 3.4 g/dL (3.5-5.0); Alkaline Phosphatase 107 U/L (40-110); Anion Gap 11 mmol/L (10-20); BUN (Urea Nitrogen) 17 mg/dL (8.9-20.6); CK (CPK) 631 U/L (30-200); Calc. Creatinine Clearance 0 mL/min (70-130); Calcium 8.7 mg/dL (7.8-10.44); Carbon Dioxide 26 mmol/L (22-29); Chloride 107 mmol/L (98-107); Estimated GFR 59; Globulin 2.6 g/dL (2.4-3.5); Glucose 176 mg/dL (70-105); Lipase 32 U/L (8-78); Sodium 140 mmol/L (136-145)
[2023-02-06] MEDS ORDERED: Aspirin Chewable 81 MG TAB ONE (16:26)
[2023-02-06] MEDS ORDERED: Furosemide 40 MG/4 ML VIAL ONE (16:26)
[2023-02-06] MEDS ORDERED: Glucagon 1 MG/ML KIT IM PRN (17:03)
[2023-02-06] MEDS ORDERED: Ondansetron ODT 4 MG TAB PO PRN (17:03)
[2023-02-06] MEDS ORDERED: Acetaminophen 325 MG TAB PO PRN (17:03)
[2023-02-06] MEDS ORDERED: Ondansetron PF 4 MG/2 ML Vial IVP PRN (17:03)
[2023-02-06] MEDS ORDERED: Dextrose 5% in Water 1,000 ML IV PRN (17:03)
[2023-02-06] MEDS ORDERED: Dextrose 50% Abboject 50 ML SYRINGE SLOW IVP PRN (17:03)
[2023-02-06] MEDS ORDERED: HumaLOG 300 UNITS/3 ML VIAL SC PRN ×2 (17:03)
[2023-02-06] MEDS ORDERED: Albuterol 200 PUFF (6.7GM INHALER) INH PRN (17:05)
[2023-02-06 17:31] LABS: Troponin I 0.014 ng/mL (< 0.028)
[2023-02-06 18:19] VITALS: BMI 42.8
[2023-02-06] MEDS: Mometasone 100 MCG/Formoterol 5 MCG 120 PUFF INHALER INH SCH (18:48)
[2023-02-06 20:03] LABS: Troponin I 0.013 ng/mL (< 0.028)
[2023-02-06 20:06] LABS: Bacteria/HPF None Seen HPF (None Seen); Bilirubin Negative (Negative); Blood, Urine Negative (Negative); Clarity Clear (Clear); Glucose, Urine (Dipstick) Normal (Negative); Ketone, Urine Negative (Negative); Leukocyte Negative Leu/uL (Negative); Mucous/LPF Rare LPF (<2+); Nitrite Negative (Negative); Protein, Urine (Dipstick) 100 mg/dL (Neg-Trace); RBC/HPF 0-3 HPF (0-3); Specific Gravity, Urine 1.008 (1.002-1.036); Squamous Epithelial None Seen HPF (0-3); Urobilinogen Normal mg/dL (Less than 2); WBC/HPF 0-3 HPF (0-3)
[2023-02-06] MEDS: Atorvastatin Calcium 40 MG TAB PO SCH (20:18)
[2023-02-06] MEDS: Heparin 5,000 UNITS/ML VIAL SC SCH (20:19)
[2023-02-06] MEDS ORDERED: Carvedilol 25 MG TAB PO SCH (21:00)
[2023-02-07 05:06] LABS: #Eosinphils 0.2 thou/uL (0.0-0.7); #Monocytes 0.6 thou/uL (0.11-0.59); #Neutrophils 2.8 thou/uL (1.40-6.50); %Basophils 0.6 % (0.0-1.0); %Eosinophils 4.3 % (0.0-10.0); %Lymphocytes 31.6 % (21.0-51.0); %Monocytes 11.3 % (0.0-10.0); Hemoglobin 13.2 g/dL (14.0-18.0); Mean Corpuscular HGB CONC 32.6 g/dL (32.0-36.0); Mean Corpuscular Hemoglobin 30.1 pg (27.0-31.0); Mean Corpuscular Volume 92.3 fl (78.0-98.0); Mean Platelet Volume 10.3 fL (7.4-10.4); Platelet Count 226 10x3/uL (130-400); RBC Distribution Width 14.9 % (11.5-14.5); Red Blood Cell (RBC) Count 4.39 mill/uL (4.70-6.10); White Blood Cell (WBC) Count 5.3 10x3/uL (4.8-10.8)
[2023-02-07 05:24] LABS: Anion Gap 9 mmol/L (10-20); BUN (Urea Nitrogen) 16 mg/dL (8.9-20.6); Calc. Creatinine Clearance 116 mL/min (70-130); Calcium 8.5 mg/dL (7.8-10.44); Carbon Dioxide 28 mmol/L (22-29); Chloride 105 mmol/L (98-107); Estimated GFR 64; Glucose 128 mg/dL (70-105); Potassium 3.5 mmol/L (3.5-5.1); Sodium 138 mmol/L (136-145)
[2023-02-07] MEDS: Furosemide 40 MG/4 ML VIAL SLOW IVP SCH ×2 (05:25→14:14)
[2023-02-07] MEDS: Mometasone 100 MCG/Formoterol 5 MCG 120 PUFF INHALER INH SCH ×2 (07:58→18:33)
[2023-02-07] MEDS ORDERED: Carvedilol 6.25 MG TAB PO SCH ×3 (08:00→17:00)
[2023-02-07] MEDS: Aspirin 81 mg Enteric Coated Tablet PO SCH (09:14)
[2023-02-07] MEDS: Heparin 5,000 UNITS/ML VIAL SC SCH ×3 (09:15→20:03)
[2023-02-07] MEDS: cloNIDine 0.1 MG TAB PO PRN ×2 (14:14→20:03)
[2023-02-07] MEDS: Insulin Glargine 30 UNITS/0.3 ML VIAL SC SCH (20:03)
[2023-02-07] MEDS: Atorvastatin Calcium 40 MG TAB PO SCH (20:03)
[2023-02-08] MEDS: cloNIDine 0.1 MG TAB PO PRN ×4 (00:31→20:00)
[2023-02-08] MEDS: Furosemide 40 MG/4 ML VIAL SLOW IVP SCH ×2 (05:26→15:32)
[2023-02-08] MEDS: Mometasone 100 MCG/Formoterol 5 MCG 120 PUFF INHALER INH SCH ×2 (07:19→19:07)
[2023-02-08] MEDS: NIFEdipine XL 60 MG TAB PO SCH (08:17)
[2023-02-08] MEDS: Glimepiride 2 MG TAB PO SCH (08:17)
[2023-02-08] MEDS: Clopidogrel Bisulfate 75 MG TAB PO SCH (08:18)
[2023-02-08] MEDS: Carvedilol 25 MG TAB PO SCH ×2 (08:18→17:53)
[2023-02-08] MEDS: Heparin 5,000 UNITS/ML VIAL SC SCH ×3 (08:18→20:00)
[2023-02-08] MEDS: Aspirin 81 mg Enteric Coated Tablet PO SCH (08:18)
[2023-02-08] MEDS: Empagliflozin 25 MG TAB PO SCH (08:18)
[2023-02-08] MEDS: Insulin Glargine 30 UNITS/0.3 ML VIAL SC SCH ×2 (08:19→20:00)
[2023-02-08] MEDS ORDERED: Empagliflozin 10 MG TAB PO SCH (09:00)
[2023-02-08] MEDS: hydrALAZINE 25 MG TAB PO SCH ×2 (15:34→20:00)
[2023-02-08] MEDS: Atorvastatin Calcium 40 MG TAB PO SCH (20:00)
[2023-02-09] MEDS: Furosemide 40 MG/4 ML VIAL SLOW IVP SCH ×2 (05:23→13:58)
[2023-02-09 05:33] LABS: Anion Gap 9 mmol/L (10-20); BUN (Urea Nitrogen) 15 mg/dL (8.9-20.6); Calc. Creatinine Clearance 108 mL/min (70-130); Calcium 9.6 mg/dL (7.8-10.44); Carbon Dioxide 33 mmol/L (22-29); Chloride 103 mmol/L (98-107); Estimated GFR 62; Potassium 3.1 mmol/L (3.5-5.1); Sodium 142 mmol/L (136-145)
[2023-02-09 05:43] LABS: Glucose 51 mg/dL (70-105)
[2023-02-09] MEDS: Mometasone 100 MCG/Formoterol 5 MCG 120 PUFF INHALER INH SCH (07:39)
[2023-02-09] MEDS ORDERED: Losartan 25 MG TAB PO SCH (09:00)
[2023-02-09] MEDS: Carvedilol 25 MG TAB PO SCH (09:20)
[2023-02-09] MEDS: Glimepiride 2 MG TAB PO SCH (09:20)
[2023-02-09] MEDS: Aspirin 81 mg Enteric Coated Tablet PO SCH (09:20)
[2023-02-09] MEDS: Clopidogrel Bisulfate 75 MG TAB PO SCH (09:21)
[2023-02-09] MEDS: hydrALAZINE 25 MG TAB PO SCH ×2 (09:21→13:54)
[2023-02-09] MEDS: Heparin 5,000 UNITS/ML VIAL SC SCH ×2 (09:21→13:54)
[2023-02-09] MEDS: NIFEdipine XL 60 MG TAB PO SCH (09:21)
[2023-02-09] MEDS ORDERED: Insulin Glargine 30 UNITS/0.3 ML VIAL SC SCH ×2 (09:45→21:00)
[2023-02-09] MEDS: Empagliflozin 25 MG TAB PO SCH (10:03)
[2023-02-09] MEDS ORDERED: Spironolactone 25 MG TAB PO SCH (12:00)
[2023-02-09] MEDS: Insulin Glargine 30 UNITS/0.3 ML VIAL SC SCH (12:02)
[2023-02-09] MEDS ORDERED: Potassium Chloride 20 MEQ TAB PO SCH (15:00)
[2023-02-09 15:41] VITALS: BP 181/89; TEMP 98.7
[2023-02-10] MEDS ORDERED: Spironolactone 25 MG TAB PO SCH (08:00)
== END 2023-02-09 16:12 | disposition home or self-care (01) | DRG 291 ==
LOC: ERS 13:26 → 2SW 18:06 → OBSVTOIN 02-07 09:23
PROVIDERS: ADMIT Internal Medicine; ATTEND Internal Medicine
DX: I13.0 Hypertensive heart and chronic kidney disease with heart failure and stage 1 through stage 4 chronic kidney disease, or unspecified chronic kidney disease (principal); I50.31 Acute diastolic (congestive) heart failure; J96.01 Acute respiratory failure with hypoxia; Z68.41 Body mass index [BMI] 40.0-44.9, adult; E78.5 Hyperlipidemia, unspecified; J45.909 Unspecified asthma, uncomplicated; E11.22 Type 2 diabetes mellitus with diabetic chronic kidney disease; I87.2 Venous insufficiency (chronic) (peripheral); E11.51 Type 2 diabetes mellitus with diabetic peripheral angiopathy without gangrene; I16.0 Hypertensive urgency; E66.01 Morbid (severe) obesity due to excess calories; N18.2 Chronic kidney disease, stage 2 (mild); E87.6 Hypokalemia; Z79.899 Other long term (current) drug therapy; Z79.4 Long term (current) use of insulin
CPT/HCPCS: 36415; 36416; 71045; 80048; 80053; 81001; 82550; 83690; 83880; 84484; 85025; 85379; 93005; 93306; 93970; 94664; 94760; 96372; 96374; 96376; G0378; J1644; J1815; J1940

== ENCOUNTER 2023-04-08 08:31 | Inpatient (IN) | payer MEDICARE, MEDICAID ==
[2023-04-08] MEDS ORDERED: NIFEdipine XL 60 MG TAB PO SCH (09:00)
[2023-04-08] MEDS ORDERED: Nitroglycerin 50 MG/250 ML BOT 250 ML ONE (09:08)
[2023-04-08 09:10] LABS: #Eosinphils 0.1 thou/uL (0.0-0.7); #Monocytes 0.5 thou/uL (0.11-0.59); #Neutrophils 5.2 thou/uL (1.40-6.50); %Basophils 0.4 % (0.0-1.0); %Eosinophils 0.8 % (0.0-10.0); %Lymphocytes 19.3 % (21.0-51.0); %Monocytes 7.1 % (0.0-10.0); Hematocrit 40.8 % (42.0-52.0); Hemoglobin 13.6 g/dL (14.0-18.0); Mean Corpuscular HGB CONC 33.3 g/dL (32.0-36.0); Mean Corpuscular Hemoglobin 30.2 pg (27.0-31.0); Mean Corpuscular Volume 90.5 fl (78.0-98.0); Mean Platelet Volume 10.6 fL (7.4-10.4); Platelet Count 192 10x3/uL (130-400); RBC Distribution Width 15.1 % (11.5-14.5); Red Blood Cell (RBC) Count 4.51 mill/uL (4.70-6.10); White Blood Cell (WBC) Count 7.2 10x3/uL (4.8-10.8)
[2023-04-08 09:35] LABS: ALT (SGPT) 20 U/L (8-55); AST (SGOT) 21 U/L (5-34); Albumin 3.7 g/dL (3.5-5.0); Alkaline Phosphatase 120 U/L (40-110); Anion Gap 12 mmol/L (10-20); BUN (Urea Nitrogen) 20 mg/dL (8.9-20.6); Bilirubin, Total 1.1 mg/dL (0.2-1.2); Calc. Creatinine Clearance 0 mL/min (70-130); Calcium 8.8 mg/dL (7.8-10.44); Carbon Dioxide 27 mmol/L (22-29); Chloride 102 mmol/L (98-107); Estimated GFR 51; Globulin 2.8 g/dL (2.4-3.5); Glucose 251 mg/dL (70-105); Potassium 4.2 mmol/L (3.5-5.1); Protein, Total 6.5 g/dL (6.0-8.3); Sodium 137 mmol/L (136-145)
[2023-04-08] MEDS ORDERED: Iopamidol-370 76% 500 ML MDV (1 ML CHARGE) ONE (09:36)
[2023-04-08 09:40] LABS: SARS-CoV-2 NAA Rapid Test Not Detected (NotDetected)
[2023-04-08 09:49] LABS: Troponin I 0.816 ng/mL (< 0.028)
[2023-04-08 10:06] LABS: Actual Bicarbonate (HCO3a) 26.2 mEq/L (22-28); Analyzer IN Cardio ER; Base Excess (BEa) 1.3 mEq/L (-2.0 to +3.0); CO2 Tension 42.6 mmHg (35.0-45.0); Calcium, Ionized (arterial) 1.11 mmol/L (1.12-1.30); Carboxyhemoglobin (COHb) 1.2 gm% (0.0-3.0); Hematocrit-ABG 41 % (42.0-52.0); O2 Tension (PaO2), arterial 70.9 mmHg (80.0-100.0); Potassium - ABG Lab 3.64 mmol/L (3.70-5.30); pH, Arterial 7.407 (7.35-7.45)
[2023-04-08 10:08] LABS: Puncture Site RRA
[2023-04-08] MEDS ORDERED: Furosemide 40 MG/4 ML VIAL ONE (10:18)
[2023-04-08] MEDS ORDERED: Aspirin Chewable 81 MG TAB ONE (10:18)
[2023-04-08] MEDS ORDERED: HumaLOG 300 UNITS/3 ML VIAL SC PRN (11:06)
[2023-04-08] MEDS ORDERED: Dextrose 50% Abboject 50 ML SYRINGE SLOW IVP PRN (11:06)
[2023-04-08] MEDS ORDERED: Acetaminophen 325 MG TAB PO PRN (11:06)
[2023-04-08] MEDS ORDERED: Glucagon 1 MG/ML KIT IM PRN (11:06)
[2023-04-08] MEDS ORDERED: Dextrose 5% in Water 1,000 ML IV PRN (11:06)
[2023-04-08] MEDS ORDERED: Carvedilol 6.25 MG TAB PO SCH ×2 (11:12→12:42)
[2023-04-08] MEDS ORDERED: Metoclopramide HCl 10 MG/2 ML VIAL IVP PRN (11:16)
[2023-04-08] MEDS ORDERED: Nitroglycerin 50 MG/250 ML BOT 250 ML IVPB SCH (11:30)
[2023-04-08] MEDS ORDERED: Azithromycin 250 MG TAB PO SCH (12:00)
[2023-04-08] MEDS ORDERED: cefTRIAXone\\ROCEPHIN 1 GM in Sodium Chloride 0.9% 100 ML IVPB SCH (12:00)
[2023-04-08] MEDS ORDERED: hydrALAZINE 25 MG TAB PO SCH (12:43)
[2023-04-08] MEDS: Triamterene/Hydrochlorothiazid 75 mg/50 mg Tablet PO SCH (13:03)
[2023-04-08] MEDS: Furosemide 40 MG/4 ML VIAL SLOW IVP SCH (13:08)
[2023-04-08] MEDS ORDERED: niCARdipine 25 MG in Sodium Chloride 0.9% 250 ML 250 ML IVPB SCH ×2 (13:30→13:49)
[2023-04-08] MEDS: hydrALAZINE 25 MG TAB PO SCH ×2 (14:32→20:27)
[2023-04-08 17:06] LABS: Critical Call Chem Troponin I DECREASE; Troponin I 0.803 ng/mL (< 0.028)
[2023-04-08 18:09] LABS: Bacteria/HPF None Seen HPF (None Seen); Bilirubin Negative (Negative); Blood, Urine Trace (Negative); Clarity Clear (Clear); Glucose, Urine (Dipstick) 500 mg/dL (Negative); Ketone, Urine Negative (Negative); Leukocyte Negative Leu/uL (Negative); Nitrite Negative (Negative); Protein, Urine (Dipstick) 100 mg/dL (Neg-Trace); RBC/HPF 0-3 HPF (0-3); Specific Gravity, Urine 1.019 (1.002-1.036); Squamous Epithelial None Seen HPF (0-3); Urobilinogen Normal mg/dL (Less than 2); WBC/HPF 0-3 HPF (0-3)
[2023-04-08 18:13] LABS: Amphetamine Not Detected (NotDetected); Barbiturates Screen Not Detected (NotDetected); Benzodiazepine Screen Not Detected (NotDetected); Cocaine Metabolite Screen Not Detected (NotDetected); Methadone Not Detected (NotDetected); Methamphetamine Not Detected (NotDetected); Opiate Screen Not Detected (NotDetected); Oxycodone Screen Not Detected (NotDetected); Phencyclidine (PCP) Not Detected (NotDetected); THC/Cannabinoid Screen Not Detected (NotDetected); Tricyclic Screen Not Detected (NotDetected)
[2023-04-08] MEDS: Carvedilol 25 MG TAB PO SCH (20:27)
[2023-04-08] MEDS: Atorvastatin Calcium 40 MG TAB PO SCH (20:27)
[2023-04-09 03:33] LABS: #Eosinphils 0.2 thou/uL (0.0-0.7); #Monocytes 0.5 thou/uL (0.11-0.59); #Neutrophils 3.6 thou/uL (1.40-6.50); %Basophils 0.7 % (0.0-1.0); %Eosinophils 2.9 % (0.0-10.0); %Lymphocytes 25.3 % (21.0-51.0); %Monocytes 9.3 % (0.0-10.0); %Neutrophils 61.1 % (42.0-75.0); Hematocrit 39.3 % (42.0-52.0); Hemoglobin 13.2 g/dL (14.0-18.0); Mean Corpuscular HGB CONC 33.6 g/dL (32.0-36.0); Mean Corpuscular Hemoglobin 30.8 pg (27.0-31.0); Mean Corpuscular Volume 91.8 fl (78.0-98.0); Platelet Count 179 10x3/uL (130-400); RBC Distribution Width 15.3 % (11.5-14.5); Red Blood Cell (RBC) Count 4.28 mill/uL (4.70-6.10); White Blood Cell (WBC) Count 5.8 10x3/uL (4.8-10.8)
[2023-04-09 03:59] LABS: Anion Gap 14 mmol/L (10-20); BUN (Urea Nitrogen) 18 mg/dL (8.9-20.6); Calc. Creatinine Clearance 116 mL/min (70-130); Calcium 8.9 mg/dL (7.8-10.44); Carbon Dioxide 22 mmol/L (22-29); Chloride 103 mmol/L (98-107); Estimated GFR 63; Glucose 209 mg/dL (70-105); Potassium 3.5 mmol/L (3.5-5.1); Sodium 135 mmol/L (136-145)
[2023-04-09] MEDS: Furosemide 40 MG/4 ML VIAL SLOW IVP SCH ×2 (05:17→13:27)
[2023-04-09] MEDS: HumaLOG 300 UNITS/3 ML VIAL SC PRN ×2 (06:15→11:34)
[2023-04-09] MEDS: NIFEdipine XL 60 MG TAB PO SCH (08:32)
[2023-04-09] MEDS: Insulin Glargine 30 UNITS/0.3 ML VIAL SC SCH (08:32)
[2023-04-09] MEDS: hydrALAZINE 25 MG TAB PO SCH ×3 (08:32→21:31)
[2023-04-09] MEDS: Carvedilol 25 MG TAB PO SCH ×2 (08:33→21:31)
[2023-04-09] MEDS: Clopidogrel Bisulfate 75 MG TAB PO SCH (08:33)
[2023-04-09] MEDS: Empagliflozin 25 MG TAB PO SCH (08:33)
[2023-04-09] MEDS ORDERED: Azithromycin 250 MG TAB PO SCH (09:00)
[2023-04-09] MEDS ORDERED: Aspirin Chewable 81 MG TAB PO SCH (09:00)
[2023-04-09] MEDS ORDERED: Spironolactone 25 MG TAB PO SCH (10:00)
[2023-04-09 12:22] VITALS: BMI 43.2
[2023-04-09] MEDS: Triamterene/Hydrochlorothiazid 75 mg/50 mg Tablet PO SCH (13:32)
[2023-04-09] MEDS ORDERED: cloNIDine 0.1 MG TAB PO PRN (13:40)
[2023-04-09] MEDS ORDERED: Artificial Tear Sol 15 ML BOT EA EYE PRN (15:52)
[2023-04-09] MEDS: Atorvastatin Calcium 40 MG TAB PO SCH (21:31)
[2023-04-10] MEDS: Furosemide 40 MG/4 ML VIAL SLOW IVP SCH ×2 (06:22→12:41)
[2023-04-10] MEDS: Insulin Glargine 30 UNITS/0.3 ML VIAL SC SCH (10:49)
[2023-04-10] MEDS: NIFEdipine XL 60 MG TAB PO SCH (10:50)
[2023-04-10] MEDS: Hydrochlorothiazide 25 MG TAB PO SCH (10:50)
[2023-04-10] MEDS: Spironolactone 25 MG TAB PO SCH (10:50)
[2023-04-10] MEDS: hydrALAZINE 25 MG TAB PO SCH ×3 (10:51→20:05)
[2023-04-10] MEDS: Clopidogrel Bisulfate 75 MG TAB PO SCH (10:51)
[2023-04-10] MEDS: Carvedilol 25 MG TAB PO SCH ×2 (10:52→20:05)
[2023-04-10] MEDS: Empagliflozin 25 MG TAB PO SCH (12:34)
[2023-04-10] MEDS: HumaLOG 300 UNITS/3 ML VIAL SC PRN (12:41)
[2023-04-10] MEDS: Atorvastatin Calcium 40 MG TAB PO SCH (20:07)
[2023-04-11 04:30] LABS: Hemoglobin A1c 7.7 % (4.0-6.0)
[2023-04-11 04:42] LABS: Anion Gap 12 mmol/L (10-20); BUN (Urea Nitrogen) 23 mg/dL (8.9-20.6); Calc. Creatinine Clearance 89 mL/min (70-130); Calcium 9.2 mg/dL (7.8-10.44); Carbon Dioxide 31 mmol/L (22-29); Chloride 98 mmol/L (98-107); Estimated GFR 50; Glucose 86 mg/dL (70-105); Potassium 3.4 mmol/L (3.5-5.1); Sodium 138 mmol/L (136-145)
[2023-04-11] MEDS: Furosemide 40 MG/4 ML VIAL SLOW IVP SCH ×2 (05:26→15:46)
[2023-04-11] MEDS: hydrALAZINE 25 MG TAB PO SCH ×2 (09:20→15:46)
[2023-04-11] MEDS: Hydrochlorothiazide 25 MG TAB PO SCH (09:20)
[2023-04-11] MEDS: Spironolactone 25 MG TAB PO SCH (09:21)
[2023-04-11] MEDS: Carvedilol 25 MG TAB PO SCH (09:21)
[2023-04-11] MEDS: NIFEdipine XL 60 MG TAB PO SCH (09:21)
[2023-04-11] MEDS: Clopidogrel Bisulfate 75 MG TAB PO SCH (09:21)
[2023-04-11] MEDS: Insulin Glargine 30 UNITS/0.3 ML VIAL SC SCH (09:25)
[2023-04-11] MEDS ORDERED: Potassium Chloride 20 MEQ TAB PO SCH (10:00)
[2023-04-11] MEDS: Empagliflozin 25 MG TAB PO SCH (10:15)
[2023-04-11 16:11] VITALS: BP 146/80; TEMP 97.7
[2023-04-11] MEDS: HumaLOG 300 UNITS/3 ML VIAL SC PRN (17:48)
== END 2023-04-11 19:04 | disposition home or self-care (01) | DRG 291 ==
LOC: ERS 08:31 → CCU 10:45 → 2NO 04-09 12:41
PROVIDERS: ADMIT Family Medicine; ATTEND Hospitalist
PROC: 4A033R1 Measurement of Arterial Saturation, Peripheral, Percutaneous Approach (ICD-10-PCS; principal; 2023-04-08)
PROC: 5A09357 Assistance with Respiratory Ventilation, Less than 24 Consecutive Hours, Continuous Positive Airway Pressure (ICD-10-PCS; 2023-04-10)
DX: I13.0 Hypertensive heart and chronic kidney disease with heart failure and stage 1 through stage 4 chronic kidney disease, or unspecified chronic kidney disease (principal); I50.31 Acute diastolic (congestive) heart failure; J18.9 Pneumonia, unspecified organism; J96.01 Acute respiratory failure with hypoxia; I16.1 Hypertensive emergency; N17.9 Acute kidney failure, unspecified; E87.1 Hypo-osmolality and hyponatremia; E11.51 Type 2 diabetes mellitus with diabetic peripheral angiopathy without gangrene; E78.5 Hyperlipidemia, unspecified; Z79.4 Long term (current) use of insulin; N18.2 Chronic kidney disease, stage 2 (mild); G47.33 Obstructive sleep apnea (adult) (pediatric); E87.6 Hypokalemia; E66.01 Morbid (severe) obesity due to excess calories; Z68.39 Body mass index [BMI] 39.0-39.9, adult; Z98.890 Other specified postprocedural states; Z79.899 Other long term (current) drug therapy; Z82.49 Family history of ischemic heart disease and other diseases of the circulatory system; Z83.3 Family history of diabetes mellitus; Z86.718 Personal history of other venous thrombosis and embolism; Z20.822 Contact with and (suspected) exposure to COVID-19; R77.8 Other specified abnormalities of plasma proteins
CPT/HCPCS: 36415; 36416; 36600; 71045; 71275; 76770; 80048; 80053; 80306; 81001; 82088; 82805; 83036; 83880; 84244; 84443; 84484; 85025; 93005; 93306; 93798; 94660; 96365; 96366; 96375; 97139; J1650; J1815; J1940; J7050; Q9967; U0002

== ENCOUNTER 2023-10-21 21:13 | Emergency (ER) | payer MEDICARE, MEDICAID ==
[2023-10-21 22:23] LABS: #Eosinphils 0.2 thou/uL (0.0-0.7); #Monocytes 0.6 thou/uL (0.11-0.59); #Neutrophils 2.7 thou/uL (1.40-6.50); %Basophils 0.4 % (0.0-1.0); %Eosinophils 3.4 % (0.0-10.0); %Lymphocytes 34.6 % (21.0-51.0); %Monocytes 10.5 % (0.0-10.0); %Neutrophils 50.7 % (42.0-75.0); Hemoglobin 13.8 g/dL (14.0-18.0); Mean Corpuscular HGB CONC 33.7 g/dL (32.0-36.0); Mean Corpuscular Hemoglobin 31.4 pg (27.0-31.0); Mean Corpuscular Volume 93.4 fl (78.0-98.0); Mean Platelet Volume 10.6 fL (7.4-10.4); Platelet Count 207 10x3/uL (130-400); RBC Distribution Width 14.2 % (11.5-14.5); Red Blood Cell (RBC) Count 4.39 mill/uL (4.70-6.10); White Blood Cell (WBC) Count 5.3 10x3/uL (4.8-10.8)
[2023-10-21 22:40] LABS: ALT (SGPT) 20 U/L (8-55); AST (SGOT) 21 U/L (5-34); Albumin 3.5 g/dL (3.5-5.0); Alkaline Phosphatase 104 U/L (40-110); Anion Gap 13 mmol/L (10-20); BUN (Urea Nitrogen) 20 mg/dL (8.9-20.6); Bilirubin, Total 0.8 mg/dL (0.2-1.2); Calc. Creatinine Clearance 0 mL/min (70-130); Calcium 8.6 mg/dL (7.8-10.44); Carbon Dioxide 25 mmol/L (22-29); Chloride 106 mmol/L (98-107); Estimated GFR 62; Globulin 2.7 g/dL (2.4-3.5); Glucose 269 mg/dL (70-105); Magnesium 1.8 mg/dL (1.6-2.6); Potassium 3.7 mmol/L (3.5-5.1); Protein, Total 6.2 g/dL (6.0-8.3); Sodium 140 mmol/L (136-145)
== END 2023-10-21 23:14 | disposition home or self-care (01) ==
LOC: ERS 21:13
DX: J06.9 Acute upper respiratory infection, unspecified (principal); I11.0 Hypertensive heart disease with heart failure; I50.9 Heart failure, unspecified; E11.9 Type 2 diabetes mellitus without complications; Z55.6 Problems related to health literacy
CPT/HCPCS: 36415; 71045; 80053; 83735; 83880; 84484; 85025; 93005